=== PATIENT | female | born 1950 | race Caucasian/White ===

== ENCOUNTER 2020-10-13 07:06 | Inpatient (IN) | payer MEDICARE, SELFPAY ==
[2020-10-13] VITALS (9 sets, daily range): BP systolic 136–162; BP diastolic 73–89; PULSE 81–90; RESP 16–18; TEMP 36–36.4; O2SAT 97–99; BMI 32.6
--- NOTE | ~2020-10-13 | US_ITS ---
EXAMINATION: US renal BI EXAM DATE: 10/14/2020 09:31 INDICATION: Acute kidney insufficiency. TECHNIQUE: Multiple grayscale and Doppler images of the kidneys were obtained (by a technologist who performed the scan) and subsequently reviewed. There is no prior study for comparison. FINDINGS: Right kidney: There is normal contour and echogenicity. It measures 10.2 x 4.6 x 5.3 centimeters. T here are no focal renal lesions identified. There is no hydronephrosis. Left kidney: There is normal contour and echogenicity. It measures 10.3 x 4.8 x 5.2 centimeters. The re is a cyst measuring 2 cm. There is no hydronephrosis. Mildly thickened bladder wall probably from underdistention. IMPRESSION: No hydronephrosis. Reviewed, dictated and finalized at location A. IMPRESSION: No hydronephrosis.
--- NOTE | 2020-10-13 07:07 | ECG_ITS ---
Measurements Intervals [place] Rate: 82 P: 20 MT: 168 QRS: 3 QRSD: 118 T: 6 QT: 372 QTc: 437 Interpretive Statements SINUS RHYTHM CONSIDER INFERIOR INFARCT, AGE INDETERMINATE ABNORMAL ECG Electronically Signed On 10-13-2020 10:00:33 CDT by Janes Hannah D.O.
--- NOTE | 2020-10-13 08:59 | PM.IMHP ---
H&P: HPI History of Present Illness Date/Time: 10/13/20 08:59 Chief Complaint: acute renal failure Narrative: 70 yo female with pmh of hypertesion, diabetes and hyperlipdiemia, presents with on and off dizziness and lightheadedness since past efw weeks now. she has been working with her primary care in controlling her blood pressure and was stared on triamterene. she was hypotensive with it and down to 90s and hence stopped. switched to amlodipine but it caused her to have gi side effects and she went back to triamterene. she has noticed some low urine output since then and started feeing dizzy and lightheaded. she then cmae in for evluaaiton and was found to have creatinine of 4.8. along with lightheadedness, she was also having some nasuea and intermitten vomiting since past few weeks. no abdominal pain or diarrhea. no recent antibioics use. no fever, chills. no sob, chest pain. EKG sinus tachycardia wbc 11,7 hb 11.5 hct 36 pt 316 inr 1 didmer: negative glu 121 na 137 k 5.5 cl 103 hco3 17 ca 8.8 lft normal BUN 64 cr. 4.7 cpk 213 lipase: 852 BNP 207 mg 0.8 TSH 2.375 UA: wbc 10-25, rbc 5-10, postivie leukoctye repea lbs this am with improved K, mg up to 1.4, cr up to 4.88 CT abodmen and plevis; no acute fidngins opatient refused lloyd. Review of Systems Review of Systems: Narrative: - CONSTITUTIONAL: Denies weight loss, fever and chills. - HEENT: Denies changes in vision and hearing - RESPIRATORY: Denies SOB and cough. - CV: Denies palpitations and CP. - GI: Denies abdominal pain, reports nausea, vomiting and denies diarrhea. - : Denies dysuria and urinary frequency. - MSK: Denies myalgia and joint pain. - SKIN: Denies rash and pruritus. - NEUROLOGICAL: Denies headache and syncope. reprots lightheadeness - PSYCHIATRIC: Denies recent changes in mood. Denies anxiety and depression. All systems reviewed & are unremarkable except as noted in HPI and below Constitutional: Constitutional: Reports fatigue and Reports weakness Neurologic: Reports weakness Endocrine: Endocrine: Reports fatigue Meds Home Medications and Allergies Allergies Allergy/AdvReac Type Severity Reaction Status Date / Time No Known Allergies Allergy NONE Unverified 10/01/17 14:25 Exam Narrative: Exam Narrative: GENERAL: The patient is well developed, not in acute distress HEENT: Nonicteric sclerae, PERRLA, EOMI. Oropharynx clear. Moist mucous membranes. Conjunctivae appear well perfused. CHEST: Chest wall is nontender. HEART: Regular rate and rhythm without murmur, rubs, or gallops LUNGS: Clear to auscultation bilaterally. no respiratory distress ABDOMEN: Soft, positive bowel sounds, non-tender, no organomegaly. SKIN: No rash, no excessive bruising, petechiae, or purpura. NEUROLOGIC: Cranial nerves II-XII intact, alert and oriented x 3, no gross motor deficits EXTREMITIES: no edema, cyanosis or clubbing Assessment and Plan Assessment and plan (1) CYNTHIA (acute kidney injury): Code(s): N17.9 - Acute kidney failure, unspecified Status: Acute Assessment and Plan: likely related to recent chagne in meds with diurerics. urine studies iv hydration. renal consultation. refused lloyd strict I and O discussed with staff ct with no hydronephrosis hold bp mediations particulary diruetics (2) UTI (urinary tract infection): Code(s): N39.0 - Urinary tract infection, site not specified Status: Acute Assessment and Plan: ceftriaxone. ua and cutlure (3) Diabetes: Code(s): E11.9 - Type 2 diabetes mellitus without complications Status: Acute Assessment and Plan: ssi. on ozempic, pioglitazone and metfmorin at home. (4) HTN (hypertension): Code(s): I10 - Essential (primary) hypertension Status: Acute Assessment and Plan: hold bp medications. (5) Hyperlipidemia: Code(s): E78.5 - Hyperlipidemia, unspecified Status: Acute
[2020-10-13 09:45] LABS: Basophils Percent Auto 0.5 % (0.2-1.2); Eosinophils Absolute Auto 0.1 K/mm3 (0-0.3); Eosinophils Percent Auto 1.5 % (0-4.4); Hematocrit 32.8 % (37.0-47.0); Hemoglobin 10.6 g/dL (12.0-15.0); Immature Granulocyte Absolute 0.04 K/mm3 (0.00-0.031); Immature Granulocyte Percent A 0.5 % (0-0.5); Lymphocytes Absolute Auto 1.18 K/mm3 (0.9-3.2); Lymphocytes Percent Auto 13.5 % (18.3-44.2); Mean Corpuscular HGB Conc 32.3 g/dl (32-36); Mean Corpuscular Hemoglobin 31.4 pg (26-34); Mean Platelet Volume 10.1 fl (7.4-10.4); Monocytes Absolute Auto 0.7 K/mm3 (0.1-0.6); Monocytes Percent Auto 7.6 % (2.6-8.5); Neutrophils Absolute Auto 6.7 K/mm3 (1.3-6.7); Neutrophils Percent Auto 76.4 % (45.5-73.1); Platelet Count Result 263 k/mm3 (150-375); Red Blood Count 3.38 M/mm3 (4.2-5.4); Red Cell Distribution Width 13.7 % (11.5-14.5); White Blood Count 8.7 K/mm3 (4.5-10.0)
[2020-10-13 09:52] LABS: Add Urine Microscopic? YES; Appearance Urine Clear (Clear); Bilirubin Urine Negative (Negative); Blood Urine 1+ (Negative); Color Urine Straw (Yellow); Glucose Urine UA Negative (Negative); Ketones Urine Negative (Negative); Leukocyte Esterase Ur Trace LEU/UL (Negative); Mucus Urine Rare /lpf; Nitrate Urine Negative (Negative); Protein Urine Negative (Negative); RBC Urine 0-2 /hpf (0-2); Specific Grav Ur 1.006 (1.001-1.035); Squamous Epithelial Cell Urine Rare /hpf (Few); Urobilinogen Urine Negative mg/dL (<2.0)
[2020-10-13 10:00] LABS: Magnesium 1.3 mg/dL (1.6-2.3); Phosphorus 5.2 mg/dL (2.5-4.5)
[2020-10-13 10:01] LABS: Lactic Acid Reflex 1.4 mmol/L (0.7-2.1)
[2020-10-13 10:03] LABS: Alanine Aminotransferase 10 U/L (4-35); Alkaline Phosphatase 62 U/L (38-126); Anion Gap 10 mmol/L (8-16); Aspartate Amino Transferase 24 U/L (14-36); Bilirubin,Total 0.2 mg/dL (0.2-1.3); Blood Urea Nitrogen 58 mg/dL (7-17); Calcium 8.7 mg/dL (8.4-10.2); Carbon Dioxide 22 mmol/L (22-30); Chloride 106 mmol/L (98-107); Estimated CRCL calculation 11 ml/min; Estimated Glomerular Filt Rate 9; Glucose 141 mg/dL (65-105); Sodium 138 mmol/L (137-145)
[2020-10-13 10:04] LABS: Hemoglobin A1C 7.1 % (<5.7); Lipase 665 U/L (23-300)
[2020-10-13 10:06] LABS: Hemoglobin A1C 7.1 % (<5.7)
[2020-10-13] MEDS: HEPARIN SODIUM 5,000 UNITS/ML VIAL 5000 UNITS SUB-Q ×2 (10:44→20:46)
--- NOTE | 2020-10-13 10:47 | P.CONNP_ITS ---
Assessment and Plan Assessment and plan (1) CYNTHIA (acute kidney injury): Code(s): N17.9 - Acute kidney failure, unspecified Status: Acute Assessment and Plan: * etiology not clear * patient reports no history of CKD or renal insufficiency to her knowledge (although she certainly has risk factors) * related to recent medications adjustment(?) - diuretics, ARB, metformin on hold * Her fluctuating hemodynamics may playing a role - possible protracted ATN? * CT of abdomen at OSH was negative for any intra-abdominal pathology * follow-up on urine electrolytes and urine eosinophils; assess for proteinuria * agree with IVF trial for now * will check renal ultrasound for completeness * UA noted with blood, WBC, and leukocyte esterase - culture pending * if renal function fails to improve with conservative therapy, will proceed with serological evaluation (2) Hyperkalemia: Code(s): E87.5 - Hyperkalemia Status: Acute Assessment and Plan: * presumably secondary to #1 along with ARB use and acidosis by labs at OSH ER * follow trend (3) UTI (urinary tract infection): Code(s): N39.0 - Urinary tract infection, site not specified Status: Acute Assessment and Plan: * UA somewhat suggestive * follow-up on culture results * empirically on antibiotics (4) HTN (hypertension): Code(s): I10 - Essential (primary) hypertension Status: Acute Assessment and Plan: * reasonable control for now * off diuretics and ARB * agree with hydralazine for now * follow trend of hemodynamics (5) Diabetes: Code(s): E11.9 - Type 2 diabetes mellitus without complications Status: Acute Assessment and Plan: * follow accuchecks * glycemic control Will continue to follow. History of Present Illness Reason for Consult Consult date: 10/13/20 Reason for consult: acute renal failure Chief Complaint Chief complaint: Acute Renal Failure History of Present Illness Narrative: The patient is a 70 y/o female with a past medical history as outlined below who presented to [facility] as a transfer from [facility] in [place] for further evaluation of acute renal failure.Next Apparently, the patient has been having problems with on and off issues related to dizziness and lightheadedness for the last few weeks if not longer. She has been in contact with her primary care physician in effort to alleviate these symptoms and most of the interventions to date have been to adjust her blood pressure medications as it was felt that this was the possible cause. She was on triamterene/ hydrochlorothiazide and this apparently caused relative hypotension with her blood pressure dropping to the 90 systolic and hence this medication was stopped. She was subsequently then started on amlodipine but this gave her multiple gastrointestinal side effects so she stopped it and went back to triamterene/hydrochlorothiazide. More recently, she has noticed a decrease in urine output with once again symptoms of dizziness and lightheadedness that seemed to be progressively worsening to the point where she presented to [facility] in [place] for further evaluation. I am unclear what her initial vital signs were on presentation to the emergency room but routine labs did demonstrate a significant decline in her kidney function with a creatinine of 4.8 in association with mild hyperkalemia, mild metabolic acidosis, and a elevated lipase although I do not think she had any complaints of abdominal pain. She subsequent underwent
--- NOTE | 2020-10-13 10:47 | PM.CNNEP ---
Assessment and Plan Assessment and plan (1) CYNTHIA (acute kidney injury): Code(s): N17.9 - Acute kidney failure, unspecified Status: Acute Assessment and Plan: etiology not clear patient reports no history of CKD or renal insufficiency to her knowledge (although she certainly has risk factors) related to recent medications adjustment(?) - diuretics, ARB, metformin on hold Her fluctuating hemodynamics may playing a role - possible protracted ATN? CT of abdomen at OSH was negative for any intra-abdominal pathology follow-up on urine electrolytes and urine eosinophils; assess for proteinuria agree with IVF trial for now will check renal ultrasound for completeness UA noted with blood, WBC, and leukocyte esterase - culture pending if renal function fails to improve with conservative therapy, will proceed with serological evaluation (2) Hyperkalemia: Code(s): E87.5 - Hyperkalemia Status: Acute Assessment and Plan: presumably secondary to #1 along with ARB use and acidosis by labs at OSH ER follow trend (3) UTI (urinary tract infection): Code(s): N39.0 - Urinary tract infection, site not specified Status: Acute Assessment and Plan: UA somewhat suggestive follow-up on culture results empirically on antibiotics (4) HTN (hypertension): Code(s): I10 - Essential (primary) hypertension Status: Acute Assessment and Plan: reasonable control for now off diuretics and ARB agree with hydralazine for now follow trend of hemodynamics (5) Diabetes: Code(s): E11.9 - Type 2 diabetes mellitus without complications Status: Acute Assessment and Plan: follow accuchecks glycemic control Will continue to follow. History of Present Illness Reason for Consult Consult date: 10/13/20 Reason for consult: acute renal failure Chief Complaint Chief complaint: Acute Renal Failure History of Present Illness Narrative: The patient is a 70 y/o female with a past medical history as outlined below who presented to [facility] as a transfer from [facility] in [place] for further evaluation of acute renal failure.Next Apparently, the patient has been having problems with on and off issues related to dizziness and lightheadedness for the last few weeks if not longer. She has been in contact with her primary care physician in effort to alleviate these symptoms and most of the interventions to date have been to adjust her blood pressure medications as it was felt that this was the possible cause. She was on triamterene/ hydrochlorothiazide and this apparently caused relative hypotension with her blood pressure dropping to the 90 systolic and hence this medication was stopped. She was subsequently then started on amlodipine but this gave her multiple gastrointestinal side effects so she stopped it and went back to triamterene/hydrochlorothiazide. More recently, she has noticed a decrease in urine output with once again symptoms of dizziness and lightheadedness that seemed to be progressively worsening to the point where she presented to [facility] in [place] for further evaluation. I am unclear what her initial vital signs were on presentation to the emergency room but routine labs did demonstrate a significant decline in her kidney function with a creatinine of 4.8 in association with mild hyperkalemia, mild metabolic acidosis, and a elevated lipase although I do not think she had any complaints of abdominal pain. She subsequent underwent a CT scan of the abdomen and pelvis which did not demonstrate any type of intra-abdominal pathology and there was no evidence of hydronephrosis with regard to her kidneys. She also reported some mild nausea and intermittent vomiting in the past few weeks as well but no overt fevers, chills, chest pain, or shortness of breath. Given the severity of her renal dysfunction
[2020-10-13] MEDS: SODIUM CHLORIDE 0.9% IV 1,000 ML 125 ML IV CONT ×2 (10:49→18:37)
--- NOTE | 2020-10-13 11:37 | PC.NURSE ---
This patient, Regina Keller, was admitted to IMU Room 214-01. Patient/family oriented to hospital policies and general routines including ID bracelet, bed and alarms, visiting hours, pain management, procedures, bathroom and other care routines, personal items, smoking policy, room service/diet, and visiting hours. Information on how to activate the Rapid Response Team has been discussed. Patient/Family are encouraged to report perceived risks to care and to ask questions if they do not understand what they are told or what they should do.
[2020-10-13 12:27] LABS: Glucose Point of Care 107 mg/dl (65-105)
[2020-10-13 13:12] LABS: Eosinophil Urine None Seen % (None Seen)
[2020-10-13 16:52] LABS: Glucose Point of Care 148 mg/dl (65-105)
[2020-10-13 20:35] LABS: Glucose Point of Care 160 mg/dl (65-105)
[2020-10-13] MEDS: LOVASTATIN 20 MG TABLET PO (20:46)
[2020-10-13] MEDS: PANTOPRAZOLE 40 MG TABLET PO (21:00)
[2020-10-13 22:16] LABS: Creatinine Urine 61.8 mg/dL; Urea Random Urine 313 MG/DL
[2020-10-13 22:19] LABS: Sodium Urine Random 115 meq/L
[2020-10-14] VITALS (15 sets, daily range): BP systolic 129–152; BP diastolic 73–85; PULSE 72–89; RESP 18–20; TEMP 36.1–36.8; O2SAT 94–100
[2020-10-14] MEDS: SODIUM CHLORIDE 0.9% IV 1,000 ML 125 ML IV CONT ×3 (02:44→20:25)
[2020-10-14 08:45] LABS: Glucose Point of Care 136 mg/dl (65-105)
[2020-10-14] MEDS: PANTOPRAZOLE 40 MG TABLET PO (09:56)
[2020-10-14] MEDS: HEPARIN SODIUM 5,000 UNITS/ML VIAL 5000 UNITS SUB-Q ×2 (09:57→20:19)
[2020-10-14 10:21] LABS: Hematocrit 31.2 % (37.0-47.0); Mean Corpuscular HGB Conc 32.1 g/dl (32-36); Mean Corpuscular Hemoglobin 31.7 pg (26-34); Mean Platelet Volume 9.7 fl (7.4-10.4); Platelet Count Result 233 k/mm3 (150-375); Red Blood Count 3.15 M/mm3 (4.2-5.4); Red Cell Distribution Width 13.8 % (11.5-14.5)
[2020-10-14 10:32] LABS: Total Protein Urine Random 18 mg/dL
[2020-10-14 10:33] LABS: Alanine Aminotransferase 9 U/L (4-35); Albumin Level 3.6 g/dL (3.5-5.1); Alkaline Phosphatase 53 U/L (38-126); Anion Gap 10 mmol/L (8-16); Aspartate Amino Transferase 20 U/L (14-36); Bilirubin,Total 0.1 mg/dL (0.2-1.3); Blood Urea Nitrogen 42 mg/dL (7-17); Carbon Dioxide 20 mmol/L (22-30); Chloride 111 mmol/L (98-107); Estimated CRCL calculation 20 ml/min; Estimated Glomerular Filt Rate 17; Glucose 152 mg/dL (65-105); Potassium 4.6 mmol/L (3.4-5.0); Sodium 141 mmol/L (137-145)
[2020-10-14 11:10] LABS: Ur Ttl Prot Creatinine Ratio 0.29 mg/mg (0-0.20)
[2020-10-14 12:49] LABS: Glucose Point of Care 129 mg/dl (65-105)
--- NOTE | 2020-10-14 13:11 | PM.IMPN ---
Progress Note: A&P Assessment and Plan (1) CYNTHIA (acute kidney injury): Code(s): N17.9 - Acute kidney failure, unspecified Status: Acute Assessment and Plan: cr improving urine studies so far wnl; other pending, follow continue IVF nephrology following, recommendations appreciated plan for renal US strict I/O ct noted with no hydronephrosis continue holding antihypertensives and diuretics (2) UTI (urinary tract infection): Code(s): N39.0 - Urinary tract infection, site not specified Status: Acute Assessment and Plan: continue ceftriaxone follow uc (3) Diabetes: Code(s): E11.9 - Type 2 diabetes mellitus without complications Status: Acute Assessment and Plan: ssi/accuchecks holding orals monitor (4) HTN (hypertension): Code(s): I10 - Essential (primary) hypertension Status: Acute Assessment and Plan: hold bp medications for now monitor (5) Hyperlipidemia: Code(s): E78.5 - Hyperlipidemia, unspecified Status: Acute Assessment and Plan: resume home meds (6) Hyperkalemia: Code(s): E87.5 - Hyperkalemia Status: Acute Assessment and Plan: resolved monitor (7) Hypomagnesemia: Code(s): E83.42 - Hypomagnesemia Status: Acute Assessment and Plan: 0.8 at OSH-->1.3 will recheck replace prn monitor (8) Elevated lipase: Code(s): R74.8 - Abnormal levels of other serum enzymes Status: Acute Assessment and Plan: unclear etiology will recheck CT showed no pancreatitis Subjective Date/time seen: 10/14/20 13:11 pt seen and evaluated; no acute events overnight; labs, diagnostic reports and consult notes reviewed Review of Systems Review of Systems: All systems reviewed & are unremarkable except as noted in HPI and below Exam Const: General: no acute distress, alert and awake Orientation/consciousness: patient oriented x3 HENMT: Head: normocephalic and atraumatic Ears: hearing grossly normal bilaterally and external ears normal Face and sinus: face symmetric Mouth: Yes Normal oral and palatal mucosa present Eyes: Pupils: Equal, round and reactive pupils present EOM: EOMs intact bilaterally Neck: Neck: full ROM, trachea midline and no JVD Thyroid: thyroid normal Chest: Chest palpation & inspection: normal inspection of the chest Resp: Effort & Inspection: normal respiratory effort Auscultation: clear to auscultation bilaterally Cardio: Jugular venous distension: no JVD Rate: regular rate Rhythm: regular rhythm Heart sounds: S1 normal heart sound present and S2 normal heart sound present GI: Inspection: normal to inspection GI Palp: Yes Soft to palpation Percussion: Yes normal to percussion Auscultation: normal bowel sounds : General: Yes no CVA tenderness Back/Spine/Pelvis: Back: no CVA tenderness Skin: General skin exam: normal color Rashes: no rashes Neuro: General: patient oriented x3 and CN's II-XI intact bilaterally Cranial nerves: Yes Equal, round and reactive pupils present Speech: normal speech Psych: Appearance: grossly normal Affect: normal affect Judgement: Good judgement present (Psych) Objective Data Vital Signs Vital Signs: Vital Signs - 24 hr 10/13/20 14:00 10/13/20 16:00 10/13/20 18:00 Temperature 36.4 C Pulse Rate 87 90 86 Respiratory Rate 16 Blood Pressure 136/77 Pulse Oximetry 97 10/13/20 20:00 10/13/20 22:00 10/14/20 00:00 Temperature 36.0 C L 36.6 C Pulse Rate 85 83 72 Respiratory Rate 18 18 Blood Pressure 145/74 H 136/74 Pulse Oximetry 98 99 10/14/20 02:00 10/14/20 04:00 10/14/20 06:00 Temperature 36.1 C L Pulse Rate 78 85 73 Respiratory Rate 18 Blood Pressure 141/77 H Pulse Oximetry 100 10/14/20 07:37 10/14/20 08:00 10/14/20 10:00 Temperature 36.3 C L Pulse Rate 84 83 85 Respiratory Rate 18 Blood Pressure 137/80 Pulse Oximetry 99 10/14/20 11:36
--- NOTE | 2020-10-14 13:46 | P.PNNP_ITS ---
Progress Note: A&P Assessment and Plan (1) CYNTHIA (acute kidney injury): Code(s): N17.9 - Acute kidney failure, unspecified Status: Acute Assessment and Plan: * etiology not clear * patient reports no history of CKD or renal insufficiency to her knowledge (although she certainly has risk factors) * related to recent medications adjustment(?) - diuretics, ARB, metformin on hold * Her fluctuating hemodynamics may playing a role - possible protracted ATN? * CT of abdomen at OSH was negative for any intra-abdominal pathology * mild proteinuria noted and urine electrolytes are non-prerenal * agree with IVFs for now * UA noted with blood, WBC, and leukocyte esterase - culture pending * renal ultrasound negative * continue current therapy (2) Hyperkalemia: Code(s): E87.5 - Hyperkalemia Status: Acute Assessment and Plan: * presumably secondary to #1 along with ARB use and acidosis by labs at OSH ER * follow trend (3) UTI (urinary tract infection): Code(s): N39.0 - Urinary tract infection, site not specified Status: Acute Assessment and Plan: * UA somewhat suggestive * follow-up on culture results * empirically on antibiotics (4) HTN (hypertension): Code(s): I10 - Essential (primary) hypertension Status: Acute Assessment and Plan: * reasonable control for now * off diuretics and ARB * agree with hydralazine for now * follow trend of hemodynamics (5) Diabetes: Code(s): E11.9 - Type 2 diabetes mellitus without complications Status: Acute Assessment and Plan: * follow accuchecks * glycemic control Will continue to follow. Subjective Date/time seen: 10/14/20 13:46 Appears to be doing reasonably well; good urine output with IVF resuscitation and renal function has improved as well; no other issues/events overnight or earlier this AM; no apparent distress voiced at this time. Exam Narrative: Exam Narrative: General: WD/WN female in NAD Heart: normal S1 and S2; no rub Lungs: clear to auscultation Abdomen: soft, nontender, nondistended, positive bowel sounds Extremities: no cyanosis or clubbing; no edema Skin: warm and dry Objective Data Vital Signs Vital Signs: Vital Signs Temp Pulse Resp BP Pulse Ox 10/14/20 12:00 76 18 99 10/14/20 11:36 36.5 C 81 18 129/73 99 06/06/21 10:00 85 10/14/20 08:00 83 10/14/20 07:37 36.3 C L 84 18 137/80 99 10/14/20 06:00 73 10/14/20 04:00 36.1 C L 85 18 141/77 H 100 10/14/20 02:00 78 10/14/20 00:00 36.6 C 72 18 136/74 99 10/13/20 22:00 83 10/13/20 20:00 36.0 C L 85 18 145/74 H 98 10/13/20 18:00 86 10/13/20 16:00 36.4 C 90 16 136/77 97 Intake/Output Intake/Output: Intake & Output 10/11/20 10/12/20 10/13/20 10/14/20 23:59 23:59 23:59 23:59 Intake Total 2290 3030 Output Total 1400 2000 Balance 890 1030 Meds/Results Medications: Active Medications Generic Name Dose Route Start Last Admin Trade Name Freq PRN Reason Stop Dose Admin Dextrose 12.5 gm 10/13/20 08:58 Dextrose 50% 25 Gm/50 Ml Syringe IV PUSH PRN PRN Hy
--- NOTE | 2020-10-14 13:46 | PM.PNNEP ---
Progress Note: A&P Assessment and Plan (1) CYNTHIA (acute kidney injury): Code(s): N17.9 - Acute kidney failure, unspecified Status: Acute Assessment and Plan: etiology not clear patient reports no history of CKD or renal insufficiency to her knowledge (although she certainly has risk factors) related to recent medications adjustment(?) - diuretics, ARB, metformin on hold Her fluctuating hemodynamics may playing a role - possible protracted ATN? CT of abdomen at OSH was negative for any intra-abdominal pathology mild proteinuria noted and urine electrolytes are non-prerenal agree with IVFs for now UA noted with blood, WBC, and leukocyte esterase - culture pending renal ultrasound negative continue current therapy (2) Hyperkalemia: Code(s): E87.5 - Hyperkalemia Status: Acute Assessment and Plan: presumably secondary to #1 along with ARB use and acidosis by labs at OSH ER follow trend (3) UTI (urinary tract infection): Code(s): N39.0 - Urinary tract infection, site not specified Status: Acute Assessment and Plan: UA somewhat suggestive follow-up on culture results empirically on antibiotics (4) HTN (hypertension): Code(s): I10 - Essential (primary) hypertension Status: Acute Assessment and Plan: reasonable control for now off diuretics and ARB agree with hydralazine for now follow trend of hemodynamics (5) Diabetes: Code(s): E11.9 - Type 2 diabetes mellitus without complications Status: Acute Assessment and Plan: follow accuchecks glycemic control Will continue to follow. Subjective Date/time seen: 10/14/20 13:46 Appears to be doing reasonably well; good urine output with IVF resuscitation and renal function has improved as well; no other issues/events overnight or earlier this AM; no apparent distress voiced at this time. Exam Narrative: Exam Narrative: General: WD/WN female in NAD Heart: normal S1 and S2; no rub Lungs: clear to auscultation Abdomen: soft, nontender, nondistended, positive bowel sounds Extremities: no cyanosis or clubbing; no edema Skin: warm and dry Objective Data Vital Signs Vital Signs: Vital Signs Temp Pulse Resp BP Pulse Ox 10/14/20 12:00 76 18 99 10/14/20 11:36 36.5 C 81 18 129/73 99 10/14/20 10:00 85 10/14/20 08:00 83 10/14/20 07:37 36.3 C L 84 18 137/80 99 10/14/20 06:00 73 10/14/20 04:00 36.1 C L 85 18 141/77 H 100 10/14/20 02:00 78 10/14/20 00:00 36.6 C 72 18 136/74 99 10/13/20 22:00 83 10/13/20 20:00 36.0 C L 85 18 145/74 H 98 10/13/20 18:00 86 10/13/20 16:00 36.4 C 90 16 136/77 97 Intake/Output Intake/Output: Intake & Output 10/11/20 10/12/20 10/13/20 10/14/20 23:59 23:59 23:59 23:59 Intake Total 2290 3030 Output Total 1400 2000 Balance 890 1030 Meds/Results Medications: Active Medications Generic Name Dose Route Start Last Admin Trade Name Freq PRN Reason Stop Dose Admin Dextrose 12.5 gm 10/13/20 08:58 Dextrose 50% 25 Gm/50 Ml Syringe IV PUSH PRN PRN Hypoglycemia Protocol Glucagon 1 mg 10/13/20 08:58 Glucagon For Inj 1 Mg Vial IM PRN PRN Hypoglycemia Protocol Glucose 15 gm 10/13/20 08:58 Glucose Oral Gel 15 Gm Of Glucse In 37.5 Gm Tube PO PRN PRN Hypoglycemia Protocol Heparin Sodium (Porcine) 5,000 units 10/13/20 09:00 10/14/20 09:57 Heparin Sodium 5,000 Units/Ml Vial SUB-Q 5,000 units Q12HR MILA Administration Hydralazine HCl 10 mg 10/13/20 14:22 Hydralazine Hcl 20 Mg/Ml Vial IV PUSH Q8H PRN Blood Pressure - High Sodium Chloride 1,000 mls @ 125 mls/hr 10/13/20 07:10 10/14/20 09:58 Normal Saline Iv IV CONT 125 mls/hr .Q8H MILA Administration Ceftriaxone Sodium/Dextrose 1 gm in 50 mls @ 100 mls/hr 10/13/20 09:00 10/14/20
[2020-10-14 15:01] LABS: Lipase 720 U/L (23-300); Magnesium 0.9 mg/dL (1.6-2.3)
[2020-10-14] MEDS: MAGNESIUM SULF 4 GM/WATER100ML 4 GM/100 ML BAG IVPB (16:24)
[2020-10-14 18:01] LABS: Glucose Point of Care 174 mg/dl (65-105)
[2020-10-14] MEDS: LOVASTATIN 20 MG TABLET PO (20:19)
[2020-10-14 20:53] LABS: Glucose Point of Care 162 mg/dl (65-105)
[2020-10-15] VITALS (12 sets, daily range): BP systolic 134–152; BP diastolic 66–89; PULSE 66–90; RESP 16–18; TEMP 36.2–36.9; O2SAT 95–98; BMI 32.8
[2020-10-15] MEDS: SODIUM CHLORIDE 0.9% IV 1,000 ML 125 ML IV CONT ×2 (06:13→11:48)
[2020-10-15 07:01] LABS: Glucose Point of Care 141 mg/dl (65-105)
[2020-10-15] MEDS: HEPARIN SODIUM 5,000 UNITS/ML VIAL 5000 UNITS SUB-Q ×2 (08:33→20:35)
[2020-10-15] MEDS: PANTOPRAZOLE 40 MG TABLET PO (08:33)
[2020-10-15 09:07] LABS: Hematocrit 29.6 % (37.0-47.0); Hemoglobin 9.6 g/dL (12.0-15.0)
[2020-10-15 09:44] LABS: Anion Gap 9 mmol/L (8-16); Blood Urea Nitrogen 30 mg/dL (7-17); Calcium 7.7 mg/dL (8.4-10.2); Carbon Dioxide 22 mmol/L (22-30); Chloride 110 mmol/L (98-107); Estimated CRCL calculation 31 ml/min; Estimated Glomerular Filt Rate 30; Glucose 144 mg/dL (65-105); Lipase 635 U/L (23-300); Potassium 4.4 mmol/L (3.4-5.0); Sodium 141 mmol/L (137-145)
[2020-10-15 10:50] LABS: Magnesium 1.4 mg/dL (1.6-2.3)
[2020-10-15 12:06] LABS: Glucose Point of Care 117 mg/dl (65-105)
--- NOTE | 2020-10-15 14:06 | PM.IMPN ---
Progress Note: A&P Assessment and Plan (1) CYNTHIA (acute kidney injury): Code(s): N17.9 - Acute kidney failure, unspecified Status: Acute Assessment and Plan: No history of chronic kidney disease. No prior labs available to establish baseline. Creatinine was 4.9 at time of presentation and has improved down to 1.7 today. She has recently had episodes of hypotension followed by subsequent hypertension, which may be affecting renal function. Renal ultrasound negative. Appreciate nephrology consultation Continue IV fluids ARB and diuretics are on hold Urine studies pending (2) UTI (urinary tract infection): Code(s): N39.0 - Urinary tract infection, site not specified Status: Acute Assessment and Plan: Ruled out. Urine culture negative. IV ceftriaxone discontinued. (3) Diabetes: Code(s): E11.9 - Type 2 diabetes mellitus without complications Status: Acute Assessment and Plan: A1c is 7.1. Blood sugars reviewed and have been fairly well controlled. Continue Accu-Cheks, sliding scale insulin, hypoglycemic protocol Hold oral hypoglycemic agents Monitor glucose trends (4) HTN (hypertension): Code(s): I10 - Essential (primary) hypertension Status: Acute Assessment and Plan: Blood pressure reviewed and has been reasonably well controlled. Last BP 151/89. Antihypertensive agents are on hold as described above given CYNTHIA Monitor BP trends (5) Hyperkalemia: Code(s): E87.5 - Hyperkalemia Status: Acute Assessment and Plan: Resolved. Likely secondary to acute kidney injury. Potassium 4.4 today. (6) Hypomagnesemia: Code(s): E83.42 - Hypomagnesemia Status: Acute Assessment and Plan: Magnesium was 0.8 at outside hospital. Improved to 1.4 today. Administer 2 g IV magnesium sulfate Will likely need to be started on oral magnesium supplement Monitor magnesium levels daily (7) Elevated lipase: Code(s): R74.8 - Abnormal levels of other serum enzymes Status: Acute Assessment and Plan: CT scan from outside hospital reportedly negative. She is asymptomatic and tolerating diet. Lipase has improved; 635 today. LFTs within normal limits. Trend lipase Consider further imaging/workup based on results Additional Plan Patient is hemodynamically stable. Will downgrade from IMU to medical-surgical floor. Subjective Date/time seen: 10/15/20 14:06 Interval history: Date of service: 10/15/2020 Regina Keller is a 70-year-old female with history of diabetes, hypertension, hyperlipidemia, gout, and GERD who is seen in follow-up for acute kidney injury. She is feeling well. She has no complaints at this time. She denies any urinary symptoms, although notes she is urinating more frequently given IV fluids. Denies nausea, vomiting, fever, or chills. No flank pain, abdominal pain, or suprapubic pain. Denies chest pain or palpitations. No dizziness or lightheadedness. She has been eating well. She has been able to ambulate back and forth to the restroom independently without any issues. Review of Systems Review of Systems: All systems reviewed & are unremarkable except as noted in HPI and below Exam Narrative: Exam Narrative: Ms. Keller is a well-nourished, well-appearing 70-year-old female who is lying supine in bed. She appears comfortable and is in NARD. Observed her get out of bed and ambulate with no issues. Neuro: awake, alert and oriented x4, speech clear, no focal neuro deficits noted HEENMT: normocephalic, atraumatic, EOMI, sclerae anicteric, moist oral mucosa, tongue midline, nares patent Neck: supple, no lymphadenopathy Respiratory: clear to auscultation bilaterally, nonlabored breathing Cardio: regular rate, regular rhythm with S1-S2 Abdomen: nondistended, normoactive bowel sounds, soft, nontender to palpation, no rigidity or guarding Extre
[2020-10-15] MEDS: MAGNESIUM SULF 2 GM/WATER 50ML 2 GM/50 ML BAG IVPB (15:07)
--- NOTE | 2020-10-15 16:37 | P.PNNP_ITS ---
Progress Note: A&P Assessment and Plan (1) CYNTHIA (acute kidney injury): Code(s): N17.9 - Acute kidney failure, unspecified Status: Acute Assessment and Plan: * etiology not clear * patient reports no history of CKD or renal insufficiency to her knowledge (although she certainly has risk factors) * related to recent medications adjustment(?) - diuretics, ARB, metformin on hold * Her fluctuating hemodynamics may playing a role - possible protracted ATN? * CT of abdomen at OSH was negative for any intra-abdominal pathology * mild proteinuria noted and urine electrolytes are non-prerenal * on IVFs with improvement in renal function * renal ultrasound negative * continue current therapy (2) Hyperkalemia: Code(s): E87.5 - Hyperkalemia Status: Acute Assessment and Plan: * presumably secondary to #1 along with ARB use and acidosis by labs at OSH ER * follow trend (3) UTI (urinary tract infection): Code(s): N39.0 - Urinary tract infection, site not specified Status: Acute Assessment and Plan: * UA somewhat suggestive * however, urine culture negative (4) HTN (hypertension): Code(s): I10 - Essential (primary) hypertension Status: Acute Assessment and Plan: * reasonable control for now * off diuretics and ARB * agree with hydralazine for now * follow trend of hemodynamics (5) Diabetes: Code(s): E11.9 - Type 2 diabetes mellitus without complications Status: Acute Assessment and Plan: * follow accuchecks * glycemic control I would not be opposed to discharge tomorrow if her creatinine is better - I would hold diuretics and ARB on discharge for now and repeat labs in a week to ensure kidney function continues to improve. Will continue to follow. Subjective Date/time seen: 10/15/20 16:37 Appears to be dong reasonably well; continues to make good urine output with noted improvement in renal function; eating and drinking well; ambulating without any difficulty; no apparent distress voiced at the time of my visit; no events overnight or earlier this AM. Exam Narrative: Exam Narrative: General: WD/WN female in NAD Heart: normal S1 and S2; no rub Lungs: clear to auscultation Abdomen: soft, nontender, nondistended, positive bowel sounds Extremities: no cyanosis or clubbing; no edema Skin: warm and intact Objective Data Vital Signs Vital Signs: Vital Signs Temp Pulse Resp BP Pulse Ox 10/15/20 14:00 77 10/15/20 12:11 36.9 C 79 16 152/78 H 98 10/15/20 12:00 90 10/15/20 10:00 85 10/15/20 08:00 36.4 C 80 16 151/89 H 97 10/15/20 06:00 72 10/15/20 04:00 36.4 C 71 18 140/70 97 10/15/20 02:00 74 10/15/20 00:00 36.2 C L 73 18 135/78 96 10/14/20 23:42 36.2 C L 77 18 135/78 96 10/14/20 22:00 78 10/14/20 20:00 36.8 C 89 20 152/85 H 94 Intake/Output Intake/Output: Intake & Output 10/12/20 10/13/20 10/14/20 10/15/20 23:59 23:59 23:59 23:59 Intake Total 2290 4820 2770 Output Total 1400 2350 4100 Balance 890 2470 -1330 Meds/Results Medications: Active Medications Generic Name Dose Route Start Last Admin Trade Name Freq PRN
--- NOTE | 2020-10-15 16:37 | PM.PNNEP ---
Progress Note: A&P Assessment and Plan (1) CYNTHIA (acute kidney injury): Code(s): N17.9 - Acute kidney failure, unspecified Status: Acute Assessment and Plan: etiology not clear patient reports no history of CKD or renal insufficiency to her knowledge (although she certainly has risk factors) related to recent medications adjustment(?) - diuretics, ARB, metformin on hold Her fluctuating hemodynamics may playing a role - possible protracted ATN? CT of abdomen at OSH was negative for any intra-abdominal pathology mild proteinuria noted and urine electrolytes are non-prerenal on IVFs with improvement in renal function renal ultrasound negative continue current therapy (2) Hyperkalemia: Code(s): E87.5 - Hyperkalemia Status: Acute Assessment and Plan: presumably secondary to #1 along with ARB use and acidosis by labs at OSH ER follow trend (3) UTI (urinary tract infection): Code(s): N39.0 - Urinary tract infection, site not specified Status: Acute Assessment and Plan: UA somewhat suggestive however, urine culture negative (4) HTN (hypertension): Code(s): I10 - Essential (primary) hypertension Status: Acute Assessment and Plan: reasonable control for now off diuretics and ARB agree with hydralazine for now follow trend of hemodynamics (5) Diabetes: Code(s): E11.9 - Type 2 diabetes mellitus without complications Status: Acute Assessment and Plan: follow accuchecks glycemic control I would not be opposed to discharge tomorrow if her creatinine is better - I would hold diuretics and ARB on discharge for now and repeat labs in a week to ensure kidney function continues to improve. Will continue to follow. Subjective Date/time seen: 10/15/20 16:37 Appears to be dong reasonably well; continues to make good urine output with noted improvement in renal function; eating and drinking well; ambulating without any difficulty; no apparent distress voiced at the time of my visit; no events overnight or earlier this AM. Exam Narrative: Exam Narrative: General: WD/WN female in NAD Heart: normal S1 and S2; no rub Lungs: clear to auscultation Abdomen: soft, nontender, nondistended, positive bowel sounds Extremities: no cyanosis or clubbing; no edema Skin: warm and intact Objective Data Vital Signs Vital Signs: Vital Signs Temp Pulse Resp BP Pulse Ox 10/15/20 14:00 77 10/15/20 12:11 36.9 C 79 16 152/78 H 98 10/15/20 12:00 90 10/15/20 10:00 85 10/15/20 08:00 36.4 C 80 16 151/89 H 97 10/15/20 06:00 72 10/15/20 04:00 36.4 C 71 18 140/70 97 10/15/20 02:00 74 10/15/20 00:00 36.2 C L 73 18 135/78 96 10/14/20 23:42 36.2 C L 77 18 135/78 96 10/14/20 22:00 78 10/14/20 20:00 36.8 C 89 20 152/85 H 94 Intake/Output Intake/Output: Intake & Output 10/12/20 10/13/20 10/14/20 10/15/20 23:59 23:59 23:59 23:59 Intake Total 2290 4820 2770 Output Total 1400 2350 4100 Balance 890 2470 -1330 Meds/Results Medications: Active Medications Generic Name Dose Route Start Last Admin Trade Name Freq PRN Reason Stop Dose Admin Dextrose 12.5 gm 10/13/20 08:58 Dextrose 50% 25 Gm/50 Ml Syringe IV PUSH PRN PRN Hypoglycemia Protocol Glucagon 1 mg 10/13/20 08:58 Glucagon For Inj 1 Mg Vial IM PRN PRN Hypoglycemia Protocol Glucose 15 gm 10/13/20 08:58 Glucose Oral Gel 15 Gm Of Glucse In 37.5 Gm Tube PO PRN PRN Hypoglycemia Protocol Heparin Sodium (Porcine) 5,000 units 10/13/20 09:00 10/15/20 08:33 Heparin Sodium 5,000 Units/Ml Vial SUB-Q 5,000 units Q12HR MILA Administration Hydralazine HCl 10 mg 10/13/20 14:22 Hydralazine Hcl 20 Mg/Ml Vial IV PUSH Q8H PRN Blood Pressure - High Sodium Chloride 1,000 mls @ 75 mls/hr 10/13/20 07:10 06
[2020-10-15 16:57] LABS: Glucose Point of Care 114 mg/dl (65-105)
--- NOTE | 2020-10-15 18:20 | PC.NURSE ---
This patient, Regina Keller, was received from IMU on 10/15/20 at 1820. Patient/family oriented to unit policies and routines. Report received from Kiesha BULLOCK
--- NOTE | 2020-10-15 18:24 | PC.NURSE ---
This patient, Regina Keller, was transferred to Room 303 on 10/15/20 at 1818. Personal belongings sent with patient. Report given to Deidre. Appropriate documentation sent with patient.
[2020-10-15] MEDS: LOVASTATIN 20 MG TABLET PO (20:35)
[2020-10-15] MEDS: SODIUM CHLORIDE 0.9% IV 1,000 ML 75 ML IV CONT (21:01)
[2020-10-15 21:05] LABS: Glucose Point of Care 127 mg/dl (65-105)
[2020-10-16 05:40] VITALS: BP 148/74; PULSE 67; RESP 18; TEMP 36.7; O2SAT 97
[2020-10-16 06:38] LABS: Alanine Aminotransferase 7 U/L (4-35); Albumin Level 3.2 g/dL (3.5-5.1); Alkaline Phosphatase 52 U/L (38-126); Anion Gap 7 mmol/L (8-16); Aspartate Amino Transferase 19 U/L (14-36); Bilirubin,Total < 0.1 mg/dL (0.2-1.3); Blood Urea Nitrogen 27 mg/dL (7-17); Calcium 7.6 mg/dL (8.4-10.2); Carbon Dioxide 23 mmol/L (22-30); Chloride 111 mmol/L (98-107); Estimated CRCL calculation 35 ml/min; Estimated Glomerular Filt Rate 34; Glucose 121 mg/dL (65-105); Lipase 613 U/L (23-300); Magnesium 1.3 mg/dL (1.6-2.3); Potassium 4.5 mmol/L (3.4-5.0); Sodium 141 mmol/L (137-145)
[2020-10-16 07:42] LABS: Glucose Point of Care 123 mg/dl (65-105)
[2020-10-16] MEDS: PANTOPRAZOLE 40 MG TABLET PO (08:35)
[2020-10-16] MEDS: HEPARIN SODIUM 5,000 UNITS/ML VIAL 5000 UNITS SUB-Q (08:35)
[2020-10-16] MEDS: MAGNESIUM SULFATE 3GM/D5W100ML 3 GM/100 ML BAG IVPB (09:58)
--- NOTE | 2020-10-16 10:41 | P.PNNP_ITS ---
Progress Note: A&P Assessment and Plan (1) CYNTHIA (acute kidney injury): Code(s): N17.9 - Acute kidney failure, unspecified Status: Acute Assessment and Plan: * etiology not clear * patient reports no history of CKD or renal insufficiency to her knowledge (although she certainly has risk factors) * related to recent medications adjustment(?) - diuretics, ARB, metformin on hold * her fluctuating hemodynamics may be playing a role * CT of abdomen at OSH was negative for any intra-abdominal pathology * mild proteinuria noted and urine electrolytes are non-prerenal * on IVFs with improvement in renal function * renal ultrasound negative * continue current therapy (2) Hyperkalemia: Code(s): E87.5 - Hyperkalemia Status: Acute Assessment and Plan: * presumably secondary to #1 along with ARB use and acidosis by labs at OSH ER * follow trend (3) UTI (urinary tract infection): Code(s): N39.0 - Urinary tract infection, site not specified Status: Acute Assessment and Plan: * UA somewhat suggestive * however, urine culture negative (4) HTN (hypertension): Code(s): I10 - Essential (primary) hypertension Status: Acute Assessment and Plan: * reasonable control for now * off diuretics and ARB * agree with hydralazine for now * follow trend of hemodynamics (5) Diabetes: Code(s): E11.9 - Type 2 diabetes mellitus without complications Status: Acute Assessment and Plan: * follow accuchecks * glycemic control I would not be opposed to discharge today since her creatinine is better - I would hold diuretics and ARB on discharge for now and repeat labs in a week to ensure kidney function continues to improve; we could use oral hydralazine if she needs something for BP control as a temporary measure. Will continue to follow. Subjective Date/time seen: 10/16/20 10:41 Continues to do well with no issues or problems overnight or earlier this AM; otherwise feels pretty good. Asking about discharge at the time of my visit. Exam Narrative: Exam Narrative: General: WD/WN female in NAD Heart: normal S1 and S2; no rub Lungs: clear to auscultation Abdomen: soft, nontender, nondistended, positive bowel sounds Extremities: no cyanosis or clubbing; no edema Skin: no rash or nodules Objective Data Vital Signs Vital Signs: Vital Signs Temp Pulse Resp BP Pulse Ox 10/16/20 05:40 36.7 C 67 18 148/74 H 97 10/15/20 21:37 36.8 C 82 18 149/79 H 95 10/15/20 18:15 36.8 C 85 16 148/88 H 96 10/15/20 17:00 36.6 C 83 16 134/66 96 10/15/20 14:00 77 10/15/20 12:11 36.9 C 79 16 152/78 H 98 10/15/20 12:00 90 Intake/Output Intake/Output: Intake & Output 10/13/20 10/14/20 10/15/20 10/16/20 23:59 23:59 23:59 23:59 Intake Total 2290 4820 3770 1420 Output Total 1400 2350 4100 Balance 890 2470 -330 1420 Meds/Results Medications: Active Medications Generic Name Dose Route Start Last Admin Trade Name Freq PRN Reason Stop Dose Admin Dextrose 12.5 gm 10/13/20 08:58 Dextrose 50% 25 Gm/50 Ml Syringe IV PUSH PRN PRN Hypoglycemia Protocol Glucagon 1 mg
--- NOTE | 2020-10-16 10:41 | PM.PNNEP ---
Progress Note: A&P Assessment and Plan (1) CYNTHIA (acute kidney injury): Code(s): N17.9 - Acute kidney failure, unspecified Status: Acute Assessment and Plan: etiology not clear patient reports no history of CKD or renal insufficiency to her knowledge (although she certainly has risk factors) related to recent medications adjustment(?) - diuretics, ARB, metformin on hold her fluctuating hemodynamics may be playing a role CT of abdomen at OSH was negative for any intra-abdominal pathology mild proteinuria noted and urine electrolytes are non-prerenal on IVFs with improvement in renal function renal ultrasound negative continue current therapy (2) Hyperkalemia: Code(s): E87.5 - Hyperkalemia Status: Acute Assessment and Plan: presumably secondary to #1 along with ARB use and acidosis by labs at OSH ER follow trend (3) UTI (urinary tract infection): Code(s): N39.0 - Urinary tract infection, site not specified Status: Acute Assessment and Plan: UA somewhat suggestive however, urine culture negative (4) HTN (hypertension): Code(s): I10 - Essential (primary) hypertension Status: Acute Assessment and Plan: reasonable control for now off diuretics and ARB agree with hydralazine for now follow trend of hemodynamics (5) Diabetes: Code(s): E11.9 - Type 2 diabetes mellitus without complications Status: Acute Assessment and Plan: follow accuchecks glycemic control I would not be opposed to discharge today since her creatinine is better - I would hold diuretics and ARB on discharge for now and repeat labs in a week to ensure kidney function continues to improve; we could use oral hydralazine if she needs something for BP control as a temporary measure. Will continue to follow. Subjective Date/time seen: 10/16/20 10:41 Continues to do well with no issues or problems overnight or earlier this AM; otherwise feels pretty good. Asking about discharge at the time of my visit. Exam Narrative: Exam Narrative: General: WD/WN female in NAD Heart: normal S1 and S2; no rub Lungs: clear to auscultation Abdomen: soft, nontender, nondistended, positive bowel sounds Extremities: no cyanosis or clubbing; no edema Skin: no rash or nodules Objective Data Vital Signs Vital Signs: Vital Signs Temp Pulse Resp BP Pulse Ox 10/16/20 05:40 36.7 C 67 18 148/74 H 97 10/15/20 21:37 36.8 C 82 18 149/79 H 95 10/15/20 18:15 36.8 C 85 16 148/88 H 96 10/15/20 17:00 36.6 C 83 16 134/66 96 10/15/20 14:00 77 10/15/20 12:11 36.9 C 79 16 152/78 H 98 10/15/20 12:00 90 Intake/Output Intake/Output: Intake & Output 10/13/20 10/14/20 10/15/20 10/16/20 23:59 23:59 23:59 23:59 Intake Total 2290 4820 3770 1420 Output Total 1400 2350 4100 Balance 890 2470 -330 1420 Meds/Results Medications: Active Medications Generic Name Dose Route Start Last Admin Trade Name Freq PRN Reason Stop Dose Admin Dextrose 12.5 gm 10/13/20 08:58 Dextrose 50% 25 Gm/50 Ml Syringe IV PUSH PRN PRN Hypoglycemia Protocol Glucagon 1 mg 10/13/20 08:58 Glucagon For Inj 1 Mg Vial IM PRN PRN Hypoglycemia Protocol Glucose 15 gm 10/13/20 08:58 Glucose Oral Gel 15 Gm Of Glucse In 37.5 Gm Tube PO PRN PRN Hypoglycemia Protocol Heparin Sodium (Porcine) 5,000 units 10/13/20 09:00 10/16/20 08:35 Heparin Sodium 5,000 Units/Ml Vial SUB-Q 5,000 units Q12HR MILA Administration Hydralazine HCl 10 mg 10/13/20 14:22 Hydralazine Hcl 20 Mg/Ml Vial IV PUSH Q8H PRN Blood Pressure - High Sodium Chloride 1,000 mls @ 75 mls/hr 10/13/20 07:10 10/15/20 21:01 Normal Saline Iv IV CONT 75 mls/hr .[id number] MILA Administration Dextrose 1,000 mls @ 100 mls/hr 10/13/20 08:58 Dextrose 5% 1,000 Ml IVPB PRN P
[2020-10-16 11:51] LABS: Glucose Point of Care 129 mg/dl (65-105)
[2020-10-16] MEDS: MAGNESIUM OXIDE 400 MG TABLET PO (13:31)
[2020-10-16 14:00] VITALS: BP 151/76; PULSE 82; RESP 18; TEMP 37.1; O2SAT 98
--- NOTE | 2020-10-16 15:16 | PM.DS ---
DS: Admitting Diagnosis Admitting Diagnosis Admitting Diagnosis: Acute kidney injury DS: Discharge Diagnosis Discharge Diagnosis (1) CYNTHIA (acute kidney injury): Code(s): N17.9 - Acute kidney failure, unspecified Status: Acute Assessment and Plan: No history of chronic kidney disease. No prior labs available to establish baseline. Creatinine was 4.9 at time of presentation. She has recently had episodes of hypotension followed by subsequent hypertension, and hemodynamic changes may have affected her renal function. Renal ultrasound negative. She was seen in consultation by nephrology. Her losartan and triamterene-hydrochlorothiazide were held. She was rehydrated with IV fluids. Creatinine slowly improved down to 1.5. Repeat BMP in 1 week for further monitoring with PCP. ARB and diuretic discontinued. (2) UTI (urinary tract infection): Code(s): N39.0 - Urinary tract infection, site not specified Status: Acute Assessment and Plan: Ruled out. She was asymptomatic. Urine culture negative. IV ceftriaxone discontinued. (3) Elevated lipase: Code(s): R74.8 - Abnormal levels of other serum enzymes Status: Acute Assessment and Plan: CT scan from outside hospital negative. No concerns for acute pancreatitis. She was asymptomatic and tolerating diet. Lipase was monitored and did demonstrate improvement, though remained persistently elevated around 600. LFTs within normal limits. Suspect this is related to her Ozempic, which was discontinued. (4) Hyperkalemia: Code(s): E87.5 - Hyperkalemia Status: Acute Assessment and Plan: Resolved. Likely secondary to acute kidney injury. (5) Hypomagnesemia: Code(s): E83.42 - Hypomagnesemia Status: Acute Assessment and Plan: Magnesium was 0.8 at outside hospital. Magnesium was monitored and replaced with IV magnesium sulfate. She was started on oral magnesium supplement which she should take 2 times per day and repeat magnesium levels in 1 week for further monitoring. (6) HTN (hypertension): Code(s): I10 - Essential (primary) hypertension Status: Acute Assessment and Plan: Blood pressure reviewed and was reasonably well controlled. ARB and diuretics discontinued as described above. Transitioned to hydralazine for BP control per nephrology recommendations. Encouraged BP monitoring at home and follow-up with PCP for medication adjustment as needed. (7) Diabetes: Code(s): E11.9 - Type 2 diabetes mellitus without complications Status: Acute Assessment and Plan: A1c is 7.1. Blood sugars reviewed and were fairly well controlled with sliding scale insulin during stay. Continue metformin and pioglitazone. Ozempic discontinued given elevated lipase as described below. Encourage careful monitoring of blood sugars at home given these changes and follow-up with PCP for review of blood sugar trends. DS: Summary Hospital Course Reason for hospitalization: Acute kidney injury Hospital Course: Date of admission: 10/13/2020 Date of discharge: 10/16/2020 Regina Keller is a 70-year-old female with history of diabetes, hypertension, hyperlipidemia, gout, and GERD from [facility] on 10/13/2020 due to acute kidney injury with a creatinine of 4.8. She was complained of dizziness and lightheadedness that has been ongoing for a couple of weeks. She noted that she had been seeing her PCP to adjust her blood pressure regimen and was having issues with hypotension then subsequent hypertension. Upon presentation to outside facility, she was noted to have mild leukocytosis, potassium was elevated at 5.5, creatinine was 4.7, BUN 64, lipase 852, magnesium 0.8, urinalysis was slightly abnormal, additional laboratory work unremarkable, and CT abdomen/pelvis with no acute findings. She was admitted to the hospitalist service for further evaluation and manage
[2020-10-19 06:05] LABS: Creatinine, Random Urine 59 mg/dL (20-275); Total Protein/Creatinine Ratio 356 mg/g creat (21-161)
== END 2020-10-16 16:05 | disposition home or self-care (01) | DRG 684 ==
LOC: ANHIMU 10-15 08:09 → ANH3MEDSUR 10-16 13:02 → ANHIMU 10-17 13:27
PROVIDERS: Internal Medicine Nephrology; Nurse Practitioner Adult Health; Physician Assistant; Admitting Provider Internal Medicine; PCP Internal Medicine; Visit Provider Internal Medicine
DX: N17.9 Acute kidney failure, unspecified (principal); I12.9 Hypertensive chronic kidney disease with stage 1 through stage 4 chronic kidney disease, or unspecified chronic kidney disease; E11.22 Type 2 diabetes mellitus with diabetic chronic kidney disease; N18.9 Chronic kidney disease, unspecified; E83.42 Hypomagnesemia; E87.5 Hyperkalemia; K21.9 Gastro-esophageal reflux disease without esophagitis; M10.9 Gout, unspecified; E78.5 Hyperlipidemia, unspecified
CPT/HCPCS: 36415; 76775; 80048; 80053; 81001; 81050; 82570; 82948; 83036; 83605; 83690; 83735; 84100; 84156; 84166; 84300; 84540; 85014; 85018; 85025; 85027; 85999; 86334; 86335; 87040; 87086; 93005; 97161; 97165; A9270; J0696; J1644; J3475; J7030

== ENCOUNTER 2022-08-20 13:15 | Outpatient (NON) | payer MEDICARE, SELFPAY | END 2022-08-20 13:16 | disposition home or self-care (01) | LOC: ANHLAB 08-22 13:18 | PROVIDERS: PCP Internal Medicine; Visit Provider Surgery Plastic and Reconstructive Surgery | DX: D03.9 Melanoma in situ, unspecified (principal) | CPT/HCPCS: 88305 ==

== ENCOUNTER 2023-10-26 14:10 | Outpatient (CLI) | payer MEDICARE, SELFPAY ==
--- NOTE | 2023-10-26 14:26 | ECG_ITS ---
Test Date: 2023-10-26 14:39:17 Measurements Intervals [place] Rate: 84 P: 1 NE: 170 QRS: 1 QRSD: 101 T: -7 QT: 387 QTc: 459 Interpretive Statements SINUS RHYTHM POSSIBLE ANTERIOR MYOCARDIAL INFARCTION [30 ms Q WAVE IN V3/V4, OR R < 0.2 mV IN V4],, HOLD INFERIOR MYOCARDIAL INFARCTION , OLD ABNORMAL ECG WARNING: DATA QUALITY MAY AFFECT INTERPRETATION No previous ECG available for comparison Electronically Signed On 10-26-2023 15:33:47 CDT by Mason Cross M.D.
[2023-10-26 15:17] LABS: INR 0.9
[2023-10-26 15:19] LABS: Partial Thromboplastin Time 27.7 Seconds (22.3-36.8)
== END 2023-10-26 14:11 | disposition home or self-care (01) ==
LOC: ANHSURGERY 14:15
PROVIDERS: Anesthesiology; PCP Family Medicine; Visit Provider Urology
DX: I12.9 Hypertensive chronic kidney disease with stage 1 through stage 4 chronic kidney disease, or unspecified chronic kidney disease (principal); N18.32 Chronic kidney disease, stage 3b; Z01.818 Encounter for other preprocedural examination
CPT/HCPCS: 36415; 85610; 85730; 93005

== ENCOUNTER 2023-10-29 00:14 | Day surgery (SDC) | payer MEDICARE, SELFPAY ==
--- NOTE | 2023-10-21 13:20 | PC.NURSE ---
Report to the Outpatient Waiting Room, entrance under the green pavilion located off [facility], at time __11:00 AM on date ___10/29/23____. Planned Procedure Time: __1:00 PM . Time changes happen often and if your time is changed the preop area will call you the afternoon before. - You and your visitor will be asked to self-screen and do not enter if you have any COVID symptoms. - A mask is optional within the hospital at this time. Patients may have clear liquids (water, carbonated beverages, clear teas, apple juice) until 3 hours prior to surgery ( 10 AM)with a maximum of 20 ounces. - No food from midnight until time of surgery - Infants may have breast milk until 4 hours before surgery, infant formula 6 hours prior to surgery. - Children will be allowed to drink immediately following surgery. If applicable, please bring a bottle or sippy cup to assist with drinking. Juice, water, soda, and popsicles are readily available. For infants on formula, please bring formula the day of surgery. Pacifiers are allowed. Take the following medications with a SIP of water the morning of surgery: ____METOPROLOL,HYDRALAZINE DO NOT STOP ANY OF YOUR OTHER PRESCRIPTION MEDICATIONS PRIOR TO SURGERY ?EXCEPT THE FOLLOWING Medications to discontinue per physician ___TAKE 1/2 OF AM INSULIN DOSE PER ANESTHESIA.. HOLD VITAMINS AND SUPPLEMENTS 3 DAYS PRE OP LAST DOSE 10/25/23 Please no make-up, nail ukrainian, hairspray, perfume, deodorant, or body powder the day of surgery. No jewelry (including any body piercings) or valuables the day of surgery, leave them at home. Please take a shower or bath the night before, or the morning of, surgery with an antibacterial soap. Wear comfortable, loose fitting clothing. Children are encouraged to wear pajamas. - Jewelry must be removed prior to entering the operating room. Rings and piercings that are not removed may be cut off. - The hospital will not accept responsibility for valuables. - Please leave all valuables, including medications, at home the day of surgery. If you are going home after surgery, a licensed concrete mixing truck driver must drive you home. - NO public transportation without another adult if you receive anesthesia. - We recommend that an adult stay with you for 24 hours following discharge. - We also recommend that you do not drive, make important decision, drink alcoholic beverages, or take any drugs that were not prescribed by your health care provider for at least 24 hours after your discharge time. Follow any additional instructions given to you from your surgeon. If you or anyone in your household have experienced Covid symptoms in the past week, please notify your surgeon or the nurse liaison at the phone number below for possible testing. Telephone instructions given to ___PATIENT and asked if any additional questions and then verbalized understanding. Patient advised to call surgeon office or pre surgery nurse liaison [phone] if any additional questions.
[2023-10-21 13:37] VITALS: BMI 38.0
[2023-10-29] VITALS (10 sets, daily range): BP systolic 96–164; BP diastolic 49–82; PULSE 65–88; RESP 14–20; TEMP 36.2–36.4; O2SAT 95–100
--- NOTE | 2023-10-29 06:10 | WPDHPUPDATE1 ---
History and Physical Update Update Date/Time: 10/29/23 06:10 History and Physical has been reviewed, including an updated exam of the patient. There are NO changes in the patient's condition. Risks, benefits, and alternatives have been discussed and questions answered. Patient agrees to proceed with procedure.
[2023-10-29] MEDS: LACTATED RINGERS 1,000 ML 30 ML IV CONT ×2 (10:49→14:31)
[2023-10-29 10:53] LABS: Glucose Point of Care 91 mg/dl (65-105)
--- NOTE | 2023-10-29 11:20 | WPDANESEPPF ---
Anes - Initial Pre Proc Eval Procedure: Operation Date: 10/29/23 12:00 Proposed Procedures p Transurethral Resection Bladder Tumor with Gemcitabine Instillation - Sudheer Moy MD Date/Time: 10/29/23 11:20 Surgeon: Sudheer Moy MD Pre Op Diagnosis: bladder cancer Patient Data Age: 73 Gender: F Height: 1.68 m Weight: 106.7 kg Last Vital Signs Temp 97.5 F L 10/29/23 10:56 Pulse 68 10/29/23 10:56 Resp 16 10/29/23 10:56 BP 135/82 10/29/23 10:56 Pulse Ox 100 10/29/23 10:56 O2 Del Method Room Air 10/29/23 10:56 Allergies Allergy/AdvReac Type Severity Reaction Status Date / Time lisinopril AdvReac Cough Verified 10/29/23 10:18 sun screen Allergy Rash Uncoded 10/29/23 10:18 Home Medications Medication Instructions Recorded Confirmed Type lovastatin 20 mg tablet 20 mg PO HS 10/13/20 10/29/23 History omeprazole 20 mg capsule,delayed 20 mg PO DAILY 10/13/20 10/29/23 History release hydralazine 25 mg tablet 25 mg PO TID #60 tabs 10/16/20 10/29/23 Rx allopurinol 300 mg tablet 150 mg PO DAILY KIDNEY STONES 09/16/22 10/29/23 History cholecalciferol (vitamin D3) 25 25 mcg PO DAILY 09/16/22 10/29/23 History mcg (1,000 unit) capsule metoprolol succinate 50 mg 50 mg PO BID 09/16/22 10/29/23 History tablet,extended release 24 hr dapagliflozin propanediol 10 mg 10 mg PO DAILY 04/01/23 10/21/23 History tablet (Farxiga) glipizide 5 mg tablet 10 mg PO BID 04/01/23 10/29/23 History insulin degludec 100 unit/mL (3 50 unit subcut DAILY 04/01/23 10/29/23 History mL) subcutaneous pen (Tresiba FlexTouch U-100 insulin) magnesium oxide 400 mg (241.3 mg 500 mg PO BID 04/01/23 10/29/23 History magnesium) tablet Laboratory Tests 10/29/23 10:50 POC Capillary Glucose 91 mg/dl (65-105) Patient hx anesthesia problems: none Family hx anesthesia problems: none Results Review: All pre-operative results and documents have been reviewed as part of the pre-operative evaluation. [facility] Past Medical History Medical History Diabetes GERD (gastroesophageal reflux disease) Gout HTN (hypertension) Hyperlipidemia Insomnia Nephrolithiasis Family History Family History Father Alzheimer disease Prostate carcinoma Diabetes mellitus Mother Diabetes mellitus Advanced dementia Sibling Multiple sclerosis Diabetes mellitus Mental and behavioral problem in adult Social History Social History Smoking status: Never smoker Alcohol intake: never Substance use: never Substance use type: does not use Do You Feel Safe in your Home?: Yes Lack of Transportation: No Lack of Food: Never True Current Housing: I Have Housing Concerned About Future Housing: No Difficulty Paying Gas/Electric Bills: No Difficulty Paying for Meds: No Currently Unemployed: No Education: High School Diploma/GED Difficulty w/ Childcare or Family Care: No Living arrangements: alone Gender identity (if verbalized by the patient): Female Spiritual care concerns: No Anes - Eval Final PreProcedure Day of Procedure 10/29/23 11:20 Patient weight: obese Heart: regular rate and rhythm Lungs: clear to auscultation Airway: Mallampati scale class III Neurological: alert and oriented Last oral intake: >/= 8 hours ASA classification: III Emergent: no Anesthetic plan: proceed Anesthesia type and monitoring: general LMA and standard monitoring Results Review: All pre-operative results and documents have been reviewed as part of the pre-operative evaluation. HTN, hyperlipidemia, DM (fsbs 91). Informed Consent: The patient's anesthetic plan and its attendant risks and benefits were discussed with the patient/family/POA. Questions were solicited and answers provided to the satisf
[2023-10-29] MEDS: ceFAZolin 2 GM/D5W 50 ML 2 GM/50 ML BAG IVPB (12:47)
--- NOTE | 2023-10-29 13:22 | W.PM.PROC2 ---
Procedure Note - Detailed Date of Procedure 10/29/23 Pre-op Diagnosis Bladder cancer Post-op Diagnosis Same Procedure Performed TURBT (medium, 3cm) Surgeon Sudheer Moy MD Anesthesia General Description of Procedure The patient was brought to the operative suite where she is prepped and draped in a routine sterile fashion while in the dorsal lithotomy position. This is done after the uneventful administration of systemic sedation. 2% Xylocaine jelly is introduced intraurethrally and allowed to stand for an appropriate period of time. A 24F resectoscope sheath was placed in the bladder and the bladder is circumferentially inspected carefully. 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 The ureteral orifice was preserved throughout. This area is resected in its entirety with an attempt made to include detrusor muscle for pathological evaluation of invasion. The base and periphery of this resected side is cauterized with a loop electrode. The bladder is emptied and the resectoscope was removed. The patient is taken to the recovery room having tolerated this procedure well. Drains No Packing No Pathology None sent Complications No immediate complications Condition Stable
--- NOTE | 2023-10-29 13:25 | W.PM.PROC2 ---
Procedure Note - Detailed Date of Procedure 10/29/23 Pre-op Diagnosis Bladder cancer Post-op Diagnosis Same Procedure Performed Gemcitabine installation Surgeon Sudheer Moy MD Anesthesia General Description of Procedure With the patient in the supine position, a 16F Yin catheter is placed using sterile technique. Using a protective facemask, gown and double layer of gloves Gemcitabine 2gm in 100cc saline is administered through the catheter/into the bladder. The catheter is then plugged. Patient was instructed to lie supine x20min, then to roll both the left and right x20 min. each. Total dwell time will be 60 min., after which the bladder will be drained and catheter removed. Drains No Packing No Pathology None sent Complications No immediate complications
[2023-10-29] MEDS: SODIUM CHLORIDE 0.9% IV 23.7 ML, GEMCITABINE HCL 1,000 MG BLADDER ×2 (13:27→13:28)
[2023-10-29 13:47] LABS: Glucose Point of Care 66 mg/dl (65-105)
[2023-10-29 14:23] LABS: Glucose Point of Care 64 mg/dl (65-105)
[2023-10-29] MEDS: SODIUM CHLORIDE 0.9% IV 50 ML BAG 150 ML IRRIGATION (14:35)
[2023-10-29 14:42] LABS: Glucose Point of Care 84 mg/dl (65-105)
== END 2023-10-29 15:30 | disposition home or self-care (01) ==
PROVIDERS: PCP Family Medicine; Visit Provider Urology
PROC: 0TBB8ZZ Excision of Bladder, Via Natural or Artificial Opening Endoscopic (ICD-10-PCS; CPT 52235; principal; 2023-10-29 12:00)
DX: C67.2 Malignant neoplasm of lateral wall of bladder (principal); I10 Essential (primary) hypertension; E11.9 Type 2 diabetes mellitus without complications; E78.5 Hyperlipidemia, unspecified; K21.9 Gastro-esophageal reflux disease without esophagitis; M10.9 Gout, unspecified; E66.9 Obesity, unspecified; Z68.38 Body mass index [BMI] 38.0-38.9, adult; Z79.84 Long term (current) use of oral hypoglycemic drugs; Z79.4 Long term (current) use of insulin
CPT/HCPCS: 52235; 36415; 51720; 82948; 85610; 85730; 88305; 88307; 93005; J0690; J1100; J2405; J2704; J7120; J9201

== ENCOUNTER 2023-12-16 11:22 | Outpatient (CLI) | payer MEDICARE, SELFPAY ==
[2023-12-16 12:11] LABS: Anion Gap 13 mmol/L (4-12); Blood Urea Nitrogen 30 mg/dL (7-17); Calcium 9.2 mg/dL (8.4-10.2); Carbon Dioxide 25 mmol/L (22-30); Chloride 103 mmol/L (98-107); Estimated Glomerular Filt Rate 31; Glucose 137 mg/dL (65-110); Potassium 4.4 mmol/L (3.4-5.0); Sodium 141 mmol/L (137-145)
== END 2023-12-16 11:23 | disposition home or self-care (01) ==
PROVIDERS: Anesthesiology; PCP Family Medicine; Visit Provider Urology
DX: Z01.818 Encounter for other preprocedural examination (principal); E11.9 Type 2 diabetes mellitus without complications
CPT/HCPCS: 36415; 80048

== ENCOUNTER 2023-12-17 01:30 | Day surgery (SDC) | payer MEDICARE, SELFPAY ==
--- NOTE | 2023-12-09 07:09 | PM.HPGS ---
History of Present Illness History of Present Illness Consent: Risks, benefits, and alternatives have been discussed and questions answered. Patient agrees to proceed with procedure. Chief complaint: bladder tumor Narrative: Regina Keller is a 73 year old female Who underwent resection of a 3 cm bladder neoplasm that was situated just above the left ureteral orifice in October 2023. Pathology showed T1 high-grade lesion. She presents now for re-resection of bladder tumor base. She is aware of the risks including, not limited to, hematuria, need for additional therapy, compromise to the integrity of her bladder wall. Review of Systems Review of Systems: All systems reviewed & are unremarkable except as noted in HPI and below PMFSH Past Medical History Medical History Diabetes GERD (gastroesophageal reflux disease) Gout HTN (hypertension) Hyperlipidemia Insomnia Nephrolithiasis Family History Family History Father Alzheimer disease Prostate carcinoma Diabetes mellitus Mother Diabetes mellitus Advanced dementia Sibling Multiple sclerosis Diabetes mellitus Mental and behavioral problem in adult Social History Social History Smoking status: Never smoker Alcohol intake: never Substance use: never Substance use type: does not use Do You Feel Safe in your Home?: Yes Lack of Transportation: No Lack of Food: Never True Current Housing: I Have Housing Concerned About Future Housing: No Difficulty Paying Gas/Electric Bills: No Difficulty Paying for Meds: No Currently Unemployed: No Education: High School Diploma/GED Difficulty w/ Childcare or Family Care: No Living arrangements: alone Gender identity (if verbalized by the patient): Female Spiritual care concerns: No Meds Home Medications and Allergies Home Medications Medication Instructions Recorded Confirmed Type lovastatin 20 mg tablet 20 mg PO HS 10/13/20 10/29/23 History omeprazole 20 mg capsule,delayed 20 mg PO DAILY 10/13/20 10/29/23 History release hydralazine 25 mg tablet 25 mg PO TID #60 tabs 10/16/20 10/29/23 Rx allopurinol 300 mg tablet 150 mg PO DAILY KIDNEY STONES 09/16/22 10/29/23 History cholecalciferol (vitamin D3) 25 25 mcg PO DAILY 09/16/22 10/29/23 History mcg (1,000 unit) capsule metoprolol succinate 50 mg 50 mg PO BID 09/16/22 10/29/23 History tablet,extended release 24 hr dapagliflozin propanediol 10 mg 10 mg PO DAILY 04/01/23 10/21/23 History tablet (Farxiga) glipizide 5 mg tablet 10 mg PO BID 04/01/23 10/29/23 History insulin degludec 100 unit/mL (3 50 unit subcut DAILY 04/01/23 10/29/23 History mL) subcutaneous pen (Tresiba FlexTouch U-100 insulin) magnesium oxide 400 mg (241.3 mg 500 mg PO BID 04/01/23 10/29/23 History magnesium) tablet hydrocodone 5 mg-acetaminophen 325 1 - 2 tablet PO Q6H PRN pain #20 10/29/23 Rx mg tablet tabs Allergies Allergy/AdvReac Type Severity Reaction Status Date / Time lisinopril AdvReac Cough Verified 10/29/23 10:18 sun screen Allergy Rash Uncoded 10/29/23 10:18 Exam Const: General: no acute distress Resp: Effort & Inspection: normal respiratory effort GI: Inspection: non-distended GI Palp: No abdominal tenderness and No Guarding due to palpation present (GI) Auscultation: normal bowel sounds Assessment and Plan Assessment and plan (1) Cancer of overlapping sites of bladder: Code(s): C67.8 - Malignant neoplasm of overlapping sites of bladder Status: Acute Assessment and Plan: Re-resection bladder tumor base
[2023-12-15 10:57] VITALS: BMI 37.7
--- NOTE | 2023-12-15 11:19 | PC.NURSE ---
Report to the Outpatient Waiting Room, entrance under the green pavilion located off [facility], at time ___6:00AM____ on date ___12/17/23____. Planned Procedure Time: __7:30AM . Time changes happen often and if your time is changed the preop area will call you the afternoon before. - You and your visitor will be asked to self-screen and do not enter if you have any COVID symptoms. - A mask is optional within the hospital at this time. Patients may have clear liquids (water, carbonated beverages, clear teas, apple juice) until 3 hours prior to surgery with a maximum of 20 ounces. - No food from midnight until time of surgery. Take the following medications with a SIP of water the morning of surgery: ____HYDRALAZINE, METOPROLOL DO NOT STOP ANY OF YOUR OTHER PRESCRIPTION MEDICATIONS PRIOR TO SURGERY ?EXCEPT THE FOLLOWING Medications to discontinue per physician HOLD ALL VITAMINS/SUPPLEMENTS 3 DAYS PRE-OP PER ANESTHESIA Date to take last dose 12/14/23 Please no make-up, nail slovenian, hairspray, perfume, deodorant, or body powder the day of surgery. No jewelry (including any body piercings) or valuables the day of surgery, leave them at home. Please take a shower or bath the night before, or the morning of, surgery with an antibacterial soap. Wear comfortable, loose fitting clothing. - Jewelry must be removed prior to entering the operating room. Rings and piercings that are not removed may be cut off. - The hospital will not accept responsibility for valuables. - Please leave all valuables, including medications, at home the day of surgery. If you are going home after surgery, a licensed automation driver must drive you home. - NO public transportation without another adult if you receive anesthesia. - We recommend that an adult stay with you for 24 hours following discharge. - We also recommend that you do not drive, make important decision, drink alcoholic beverages, or take any drugs that were not prescribed by your health care provider for at least 24 hours after your discharge time. Follow any additional instructions given to you from your surgeon. If you or anyone in your household have experienced Covid symptoms in the past week, please notify your surgeon or the nurse liaison at the phone number below for possible testing. Telephone instructions given to ____PATIENT and asked if any additional questions and then verbalized understanding. Patient advised to call surgeon office or pre surgery nurse liaison [phone] if any additional questions.
[2023-12-17] VITALS (8 sets, daily range): BP systolic 114–139; BP diastolic 74–80; PULSE 66–79; RESP 13–16; TEMP 36.2–36.6; O2SAT 95–100
--- NOTE | 2023-12-17 06:11 | WPDHPUPDATE1 ---
History and Physical Update Update Date/Time: 12/17/23 06:11 History and Physical has been reviewed, including an updated exam of the patient. There are NO changes in the patient's condition. Risks, benefits, and alternatives have been discussed and questions answered. Patient agrees to proceed with procedure.
[2023-12-17 06:41] LABS: Glucose Point of Care 165 mg/dl (65-105)
--- NOTE | 2023-12-17 06:49 | WPDANESEPPF ---
Anes - Initial Pre Proc Eval Procedure: Operation Date: 12/17/23 07:30 Proposed Procedures p Re-Resection Bladder Tumor Base - Sudheer Moy MD Date/Time: 12/17/23 06:49 Surgeon: Sudheer Moy MD Pre Op Diagnosis: bladder tumor Patient Data Age: 73 Gender: F Height: 1.68 m Weight: 106 kg Allergies Allergy/AdvReac Type Severity Reaction Status Date / Time lisinopril AdvReac Cough Verified 12/15/23 10:52 sun screen Allergy Rash Uncoded 12/15/23 10:52 Home Medications Medication Instructions Recorded Confirmed Type lovastatin 20 mg tablet 20 mg PO HS 10/13/20 12/15/23 History omeprazole 20 mg capsule,delayed 20 mg PO DAILY 10/13/20 12/15/23 History release hydralazine 25 mg tablet 25 mg PO TID #60 tabs 10/16/20 12/15/23 Rx allopurinol 300 mg tablet 150 mg PO DAILY KIDNEY STONES 09/16/22 12/15/23 History cholecalciferol (vitamin D3) 25 25 mcg PO DAILY 09/16/22 12/15/23 History mcg (1,000 unit) capsule metoprolol succinate 50 mg 50 mg PO BID 09/16/22 12/15/23 History tablet,extended release 24 hr dapagliflozin propanediol 10 mg 10 mg PO DAILY 04/01/23 12/15/23 History tablet (Farxiga) glipizide 5 mg tablet 10 mg PO BID 04/01/23 12/15/23 History magnesium oxide 400 mg (241.3 mg 500 mg PO BID 04/01/23 12/15/23 History magnesium) tablet hydrocodone 5 mg-acetaminophen 325 1 - 2 tablet PO Q6H PRN pain #20 10/29/23 12/15/23 Rx mg tablet tabs insulin degludec 100 24 unit subcut QAM 12/15/23 12/15/23 History unit-liraglutide 3.6 mg/mL(3 mL) subcutaneous pen (Xultophy 100/3.6) Laboratory Tests 12/17/23 06:32 POC Capillary Glucose 165 H mg/dl (65-105) Patient hx anesthesia problems: none Family hx anesthesia problems: none Results Review: All pre-operative results and documents have been reviewed as part of the pre-operative evaluation. PMFSH Past Medical History Medical History Diabetes GERD (gastroesophageal reflux disease) Gout HTN (hypertension) Hyperlipidemia Insomnia Nephrolithiasis Family History Family History Father Alzheimer disease Prostate carcinoma Diabetes mellitus Mother Diabetes mellitus Advanced dementia Sibling Multiple sclerosis Diabetes mellitus Mental and behavioral problem in adult Social History Social History Smoking status: Never smoker Alcohol intake: current Substance use: never Substance use type: does not use Do You Feel Safe in your Home?: Yes Lack of Transportation: No Lack of Food: Never True Current Housing: I Have Housing Concerned About Future Housing: No Difficulty Paying Gas/Electric Bills: No Difficulty Paying for Meds: No Currently Unemployed: No Education: High School Diploma/GED Difficulty w/ Childcare or Family Care: No Living arrangements: alone Gender identity (if verbalized by the patient): Female Spiritual care concerns: No Anes - Eval Final PreProcedure Day of Procedure 12/17/23 06:49 Patient weight: obese Heart: regular rate and rhythm Lungs: clear to auscultation Airway: Mallampati scale class II Neurological: alert and oriented Last oral intake: >/= 8 hours ASA classification: III Emergent: no Anesthetic plan: proceed Anesthesia type and monitoring: general LMA and standard monitoring Results Review: All pre-operative results and documents have been reviewed as part of the pre-operative evaluation. Informed Consent: The patient's anesthetic plan and its attendant risks and benefits were discussed with the patient/family/POA. Questions were solicited and answers provided to the satisfaction of the patient/family/POA.
[2023-12-17] MEDS: LACTATED RINGERS 1,000 ML 30 ML IV CONT (06:51)
[2023-12-17] MEDS: ceFAZolin 2 GM/D5W 50 ML 2 GM/50 ML BAG IVPB (07:21)
--- NOTE | 2023-12-17 07:46 | W.PM.PROC2 ---
Procedure Note - Detailed Date of Procedure 12/17/23 Pre-op Diagnosis Recent T1, high-grade bladder tumor Post-op Diagnosis Same Procedure Performed Re-resection bladder tumor (TURBT, 2 cm, small) Surgeon Sudheer Moy MD Anesthesia General Description of Procedure patient is brought to the operative suite where she was prepped draped in routine sterile fashion while in dorsal lithotomy position after the uneventful induction of a general LMA anesthetic. Twenty-four F resectoscope was placed in her bladder. The bladder was carefully inspected. There was no obvious recurrent neoplasm. I can clearly see the site of recent resection just above her left ureteral orifice. I repeated resection at that site with care taken to avoid injuring to the left ureteral orifice. Base and periphery cauterized with the loop electrode. All chips were evacuated. Patient tolerated procedure well and was taken recovery room in good condition Drains No Packing No Pathology Yes Complications No immediate complications
[2023-12-17 07:58] LABS: Glucose Point of Care 144 mg/dl (65-105)
== END 2023-12-17 09:35 | disposition home or self-care (01) ==
PROVIDERS: PCP Family Medicine; Visit Provider Urology
PROC: 0TBB8ZZ Excision of Bladder, Via Natural or Artificial Opening Endoscopic (ICD-10-PCS; CPT 52234; principal; 2023-12-17 07:30)
DX: C67.8 Malignant neoplasm of overlapping sites of bladder (principal); I10 Essential (primary) hypertension; E78.5 Hyperlipidemia, unspecified; E11.9 Type 2 diabetes mellitus without complications; K21.9 Gastro-esophageal reflux disease without esophagitis; M10.9 Gout, unspecified; Z79.84 Long term (current) use of oral hypoglycemic drugs; Z79.4 Long term (current) use of insulin
CPT/HCPCS: 52234; 36415; 80048; 82948; 88305; 88342; J0690; J2371; J2405; J2704; J3010; J7120

== ENCOUNTER 2025-04-24 14:16 | Outpatient (CLI) | payer MEDICARE, SELFPAY ==
--- NOTE | 2025-04-24 14:30 | ECG_ITS ---
Test Date: 2025-04-24 14:32:45 Measurements Intervals [place] Rate: 80 P: 33 SC: 173 QRS: 7 QRSD: 102 T: 3 QT: 397 QTc: 461 Interpretive Statements SINUS RHYTHM VOLTAGE CRITERIA FOR LVH ANTERIOR INFARCT, AGE INDETERMINATE CONSIDER INFERIOR INFARCT, AGE INDETERMINATE ABNORMAL ECG Compared to ECG 10/26/2023 14:39:17 No significant changes Electronically Signed On 04-24-2025 14:56:40 STEAM BONE PRESS TENDER by Janes Hannah D.O.
[2025-04-24 14:55] LABS: INR 1.0; Prothrombin Time 13.6 Seconds (11.1-14.7)
[2025-04-24 14:56] LABS: Partial Thromboplastin Time 25.9 Seconds (22.3-36.8)
== END 2025-04-24 14:17 | disposition home or self-care (01) ==
LOC: ANHSURGERY 14:20
PROVIDERS: Anesthesiology; PCP Family Medicine; Visit Provider Urology
DX: Z01.818 Encounter for other preprocedural examination (principal); I12.9 Hypertensive chronic kidney disease with stage 1 through stage 4 chronic kidney disease, or unspecified chronic kidney disease; N18.32 Chronic kidney disease, stage 3b; R94.31 Abnormal electrocardiogram [ECG] [EKG]
CPT/HCPCS: 36415; 85610; 85730; 93005

== ENCOUNTER 2025-04-27 01:01 | Day surgery (SDC) | payer MEDICARE, SELFPAY ==
--- NOTE | 2025-04-17 06:57 | PM.HPGS ---
History of Present Illness History of Present Illness Consent: Risks, benefits, and alternatives have been discussed and questions answered. Patient agrees to proceed with procedure. Chief complaint: Bladder Ca Narrative: Regina Keller is a 74 year old female with a history of recurrent urothelial carcinoma of the bladder dating back to October 2023. Recent cystoscopy demonstrated a tiny recurrence just above the left ureteral orifice. Review of Systems Review of Systems: All systems reviewed & are unremarkable except as noted in HPI and below PMFSH Past Medical History Medical History (Updated 03/29/25 @ 10:22 by Annel Peterson MD) Sec DM hpros nt [facility] Insomnia Gout GERD (gastroesophageal reflux disease) Nephrolithiasis Hyperlipidemia HTN (hypertension) Diabetes Family History Family History Father Alzheimer disease Prostate carcinoma Diabetes mellitus Mother Diabetes mellitus Advanced dementia Sibling Multiple sclerosis Diabetes mellitus Mental and behavioral problem in adult Social History Social History (Updated 03/29/25 @ 10:00 by Regina Velasco MA) Smoking status: Never smoker Alcohol intake: current Substance use: never Substance use type: does not use Lack of Transportation: No Lack of Food: Never True Current Housing: I Have Housing Concerned About Future Housing: No Difficulty Paying Gas/Electric Bills: No Difficulty Paying for Meds: No Currently Unemployed: No Education: High School Diploma/GED Difficulty w/ Childcare or Family Care: No Living arrangements: alone Gender identity (if verbalized by the patient): Female Spiritual care concerns: No Meds Home Medications and Allergies Home Medications ?Medication ?Instructions ?Recorded ?Confirmed ?Type lovastatin 20 mg tablet 20 mg PO HS 10/13/20 03/29/25 History omeprazole 20 mg capsule,delayed 20 mg PO DAILY 10/13/20 03/29/25 History release hydralazine 25 mg tablet 25 mg PO TID #60 tabs 10/16/20 03/29/25 Rx allopurinol 300 mg tablet 150 mg PO DAILY KIDNEY STONES 09/16/22 03/29/25 History cholecalciferol (vitamin D3) 25 25 mcg PO DAILY 09/16/22 03/29/25 History mcg (1,000 unit) capsule metoprolol succinate 50 mg 50 mg PO BID 09/16/22 03/29/25 History tablet,extended release 24 hr dapagliflozin propanediol 10 mg 10 mg PO DAILY 04/01/23 03/29/25 History tablet (Farxiga) glipizide 5 mg tablet 10 mg PO BID 04/01/23 03/29/25 History magnesium oxide 400 mg (241.3 mg 500 mg PO BID 04/01/23 03/29/25 History magnesium) tablet insulin degludec 100 24 unit subcut QAM 12/15/23 03/29/25 History unit-liraglutide 3.6 mg/mL(3 mL) subcutaneous pen (Xultophy 100/3.6) oxybutynin chloride 5 mg tablet 5 mg PO DAILY 03/29/24 03/29/25 History Allergies Allergy/AdvReac Type Severity Reaction Status Date / Time lisinopril AdvReac Cough Verified 03/29/25 09:50 sun screen Allergy Rash Uncoded 03/29/25 09:50 Exam Const: General: no acute distress Resp: Effort & Inspection: normal respiratory effort GI: Inspection: non-distended GI Palp: No abdominal tenderness and No Guarding due to palpation present (GI) Auscultation: normal bowel sounds Assessment and Plan Assessment and plan (1) Cancer of overlapping sites of bladder: Code(s): C67.8 - Malignant neoplasm of overlapping sites of bladder Status: Acute Assessment and Plan: TURBT followed by gemcitabine installation
[2025-04-20 09:26] VITALS: BMI 35.6
--- NOTE | 2025-04-20 09:43 | PC.NURSE ---
[facility] has started construction of its new state of the art ER which will open Spring 2026. With this, we anticipate parking may be a challenge for some our surgical patients and families. Parking spaces are limited but are available for all Surgical, obstetrics, and ER patients sharing this lot. If you arrive and find you are having a hard time finding a parking space, please note that we understand the challenges, please drive around the hospital and park near Hospital Entrance 1. When you enter this entrance, you can ask a volunteer to direct or take you back to the surgical waiting area to check in. We appreciate everyone?s understanding of these expected challenges while we build for your future. Report to the Outpatient Waiting Room, entrance under the green pavilion located off [address], at time __7:15am____ on date __04/27/25___. Planned Procedure Time: ____9:15AM___.? Time changes happen often and if your time is changed the preop area will call you the afternoon before. - You and your visitor will be asked to self-screen and do not enter if you have any COVID symptoms. Please call surgeon if you need to reschedule. - A mask is optional within the hospital at this time. Patients may have clear liquids (water, carbonated beverages, clear teas, apple juice) until 3 hours prior to surgery (6:15AM) with a maximum of 20 ounces. - No food from midnight until time of surgery and no smoking, or chewing tobacco (or any form of nicotine). No chewing gum, candy or mints. Take only the following medications with a SIP of water on the morning of surgery: __HYDRALAZINE, METOPROLOL DO NOT STOP ANY OF YOUR OTHER PRESCRIPTION MEDICATIONS PRIOR TO SURGERY EXCEPT THE FOLLOWING Hold all vitamins and supplements for 3 days per anesthesiologist.--LAST DOSE 04/23/25 Medications to discontinue per physician NONE Date to take last dose Please no make-up, nail welsh, hairspray, perfume, deodorant, or body powder the day of surgery.? No jewelry (including any body piercings) or valuables the day of surgery, leave them at home.? Please take a shower or bath the night before, or the morning of, surgery with an antibacterial soap.? Wear comfortable, loose fitting clothing.? - Jewelry must be removed prior to entering the operating room.? Rings and piercings that are not removed may be cut off. - The hospital will not accept responsibility for valuables.? - Please leave all valuables, including medications, at home the day of surgery. If you are going home after surgery, a licensed bookmobile driver must drive you home.? - NO public transportation without another adult if you receive anesthesia. - We recommend that an adult stay with you for 24 hours following discharge. - We also recommend that you do not drive, make important decision, drink alcoholic beverages, or take any drugs that were not prescribed by your health care provider for at least 24 hours after your discharge time. Follow any additional instructions given to you from your surgeon. Telephone instructions given to ___PATIENT and asked if any additional questions and then verbalized understanding. Patient advised to call surgeon office or pre surgery nurse liaison [phone] if any additional questions.
[2025-04-27] VITALS (20 sets, daily range): BP systolic 105–150; BP diastolic 55–96; PULSE 81–114; RESP 15–20; TEMP 36.2–37; O2SAT 90–100; BMI 36.0
--- OUTSIDE RECORDS SUMMARY | 2025-04-27 01:05 | XMS_ITS | Encounter Summary ---
Author Organization [facility] Address [address] [place] [address] Care Team Providers Care Assembler Steam And Gas Turbine Name Role Phone Roel Norman MD Primary Care Provider + Encounter Details Date Type Department Care Team (Late st Contact Info) Description 08/08/[address] [facility] DermPath Lab [address] [place] [address] Jc Woodard MD [address] [place] [address] Social History Tobacco Use Types Packs/Day Years Used Date Smoking Tobacco: Never Assessed Comments Unknown Sex and Gender Information Value Date Recorded Sex Assigned at Not on file Legal Sex Female 5:24 AM CEREAL POPPER Gender Identity Not on file Sexual Orientation Not on file documented as of this encounter Plan of Treatment Not on file documented as of this encounter Procedures Procedure Name Priority Date/Time Associated Diagnosis Comments DERMATOPATHOLOGY Routine 08/06/2022 3:33 AM CDT documented in this encounter Results * DERMATOPATHOLOGY (08/06/2022 3:33 AM CDT) Case Report Dermatopathology Report Case: [id number] Authorizing Provider: Jc Woodard MD Collected: 08/06/2022 03:33 AM Ordering Location: [facility] Derm[facility] Lab Received: 08/08/2022 09:42 AM Pathologist: Elisa Camacho MD Specimen: Skin, right upper FH 4:24 PM CDT DERMATOPATHOLOGY LABORATORY Final Diagnosis Specimen A. 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 The specimen consists of a shave biopsy measuring 4x3x1 mm. Jar 0. 4:24 PM CDT DERMATOPATHOLOGY LABORATORY Microscopic Description Specimen A. SKIN, right upper FH: There is a proliferation of melanocytes distributed in an irregular pattern along the dermal-epidermal junction with single cells predominating. Extension down the follicular epithelium and focal areas of confluence are present. This melanocytic proliferation is highlighted on MART-1/Melan-A. This lesion is present at the margin of the specimen. 4:24 PM CDT DERMATOPATHOLOGY LABORATORY Disclaimer An external and internal positive and negative controls are appropriate for the histochemical, immunohistochemical and immunofluorescence stain(s) in this case (if any), except where stated explicitly. The performance characteristics of the stain(s) cited in this report were developed and its performance characteristic determined by the Dermatopathology Laboratory at [facility], directed by Dr. Loren Lockwood. These tests need not be, and therefore are not, approved by the [place] Food and Drug Administration. The tests are used for clinical purposes. Billing Codes Specimen Charges Stain Charges 52661 1 17802 1 3 4:24 PM CDT DERMATOPATHOLOGY LABORATORY Embedded Images 4:24 PM CDT DERMATOPATHOLOGY LABORATORY Pathology/Cytolo gy TISSUE SPECIMEN FROM SKIN / Unknown 08/06/2022 3:33 AM CDT 08/08/2022 9:42 AM CDT us Jc Woodard MD LAB - PATHOLOGY/CYTOLOGY ORDER BENNY Final Result DERMATOPATHOLOGY LABORATORY [facility] - Department of Dermatology [address], [address] [phone] documented in this encounter Visit Diagnoses Not on filedocumented in this encounter Care Teams Assembler Steam And Gas Turbine Relationship Specialty Start Date End Date Roel Norman MD [address] [place] [id number] PCP - General 09/08/22 documented as of this encounter
--- OUTSIDE RECORDS SUMMARY | 2025-04-27 01:05 | XMS_ITS | Clinical Summary ---
Author Organization [facility] Address [address] [place] [address] Care Team Providers Care Road Service Locksmith Name Role Phone Roel Norman MD Primary Care Provider + Source Comments [facility],non-owned Affiliates and Associated Physician Practices is amultiple site organization consisting of ambulatory clinics and hospital sitesin [place], [place], [place] and [place]. This disclosure is being madepursuant to the Care Everywhere program and may not contain all information available regarding this patient. Last updated 18.[facility] Social History Tobacco Use Types Packs/Day Years Used Date Smoking Tobacco: Never Assessed Comments Unknown Sex and Gender Information Value Date Recorded Sex Assigned at Not on file Legal Sex Female 5:24 AM FUR TRIMMER Gender Identity Not on file Sexual Orientation Not on file Plan of Treatment Health Maintenance Due Date Last Done Comments DTAP/TDAP/TD VACCINES (1 - Tdap) 1967 PNEUMOCOCCAL VACCINE 50+ (1 of 1 - PCV) 1998 ZOSTER VACCINE (1 of 2) 1998 Respiratory Syncytial Virus (RSV) Vaccine Pt: or over 60 yrs (1 - 1-dose 75+ series) 2023 DEPRESSION SCREENING 05/11/2024 MEDICARE AWV CALENDAR YEAR 2024 COVID-19 VACCINE (2024- season) 2025 09/17/2021, 03/07/2021, 06/05/2020, Additional history exists HEPATITIS C SCREENING Completed 10/16/2021 BONE DENSITY TESTING Completed 11/20/2021 INFLUENZA VACCINE Completed 02/12/2025, , 01/26/2023, Additional history exists HEPATITIS B VACCINE Aged Out No longe r eligible based on patient's age to complete this topic HIB VACCINE Aged Out No longer eligi ble based on patient's age to complete this topic HPV VACCINE Aged Out No longer eligi ble based on patient's age to complete this topic MENINGOCOCCAL (Group B) VACCINE SHARED DECISION-MAKING Aged Out No longer eligible based on patient's age to complete this topic MENINGOCOCCAL GROUPS A/C/Y/W VACCINE Aged Out No longer eligible based on patient's age to complete this topic Insurance AETNA AETNA MEDICARE ADV SELF PAY NO INSURANCE Member Subscriber Plan / Payer (Ef fective for All Dates) Name:Regina Keller Member ID:Not on file Relation to Subscriber:Not on file Name:REGINA KLELER Subscriber ID:Not on file (Home) Address: [address] [place] [address] Payer ID:Not on file Group ID:Not on file Type:Self Pay Address: [place], [place] * Guarantor: REGINA KELLER Account Type Relation to Patient Date of Phone Billing Address Personal/Family [address] [place] [address] AETNA MEDICARE ADV SELF PAY NO INSURANCE Member Subscriber Plan / Payer (Ef fective for All Dates) Name:Regina Keller Member ID:Not on file Relation to Subscriber:Not on file Name:REGINA KELLER Subscriber ID:Not on file (Home) Address: [facility] [place] [address] Payer ID:Not on file Group ID:Not on file Type:Self Pay Address: [place], [place] * Guarantor: REGINA KELLER Account Type Relation to Patient Date of Phone Billing Address Personal/Family [address] [place] [address] AETNA MEDICARE ADV SELF PAY NO INSURANCE Member Subscriber Plan / Payer (Ef fective for All Dates) Name:Krishna Regina Jessica Member ID:Not on file Relation to Subscriber:Not on file Name:KELLERREGINA Subscriber ID:Not on file (Home) Address: [address] [place] [address] [place] [address] Payer ID:Not on file Group ID:Not on file Type:Self Pay Address: [place], [place] * Guarantor: REGINA KELLER Account Type Relation to Patient Date of Phone Billing Address Personal/Family [address] [place] [address] AETNA MEDICARE ADV SELF PAY NO INSURANCE Member Subscriber Plan / Payer (Ef fective for All Dates) Name:Regina Keller Member ID:Not on file Relation to Subscriber:Not on file Name:KRISHNAREGINA Subscriber ID:Not on file (Home) Address: [address] [place] [address] [place] [address] Payer ID:Not on file Group ID:Not on file Type:Self Pay Address: [place], [place] Care Teams Road Service Locksmith Relationship Specialty Start Date End Date Roel Norman MD [address] [place] [address] PCP - General 09/08/22
--- OUTSIDE RECORDS SUMMARY | 2025-04-27 01:05 | XMS_ITS | Clinical Summary ---
Author Organization [facility] Address [address], [facility] [address] [place] [address] Phone Care Team Providers Care Watch Engineer Name Role Phone Roel Norman MD Primary Care Provider U Cody Pérez MD Unavailable Allergies No known active allergies Medications allopurinol (ZYLOPRIM) 300 MG Tablet Take 300 mg by mouth daily. 9 Active lovastatin (MEVACOR) 20 MG Tablet Take 1 Tab by mouth daily. 0 Active metFORMIN (GLUCOPHAGE) 500 MG Tablet Take 1,000 mg by mouth 2 times daily. 9 Active omeprazole (PRILOSEC) 20 MG CAPSULE DELAYED RELEASE Take 20 mg by mouth daily. 9 Active pioglitazone (ACTOS) 15 MG Tablet Take 15 mg by mouth daily. 9 Active Semaglutide, 1 MG/DOSE, 2 MG/1.5ML Solution Pen-injector 1 mg by Subcutaneous route once a week. 9 Active zolpidem (AMBIEN) 5 MG Tablet Take 5 mg by mouth nightly as needed. 9 Active Cholecalciferol (VITAMIN D-3 PO) Take by mouth. Activ e valsartan (DIOVAN) 80 MG TabletIndicatio ns:Hypertension Take 80 mg by mouth daily. Indications: High Blood Pressure Disorder Active Active Problems Problem Noted Date Diagnosed Date B12 deficiency 11/03/2019 Iron deficiency anemia, unspecified 11/03/2019 Family History Medical History Relation Name Comments Diabetes Brother Diabetes Father Cancer Maternal Grandfather Breast Cancer Maternal Grandmother Cancer Maternal Grandmother Diabetes Mother Cancer Paternal Grandfather Stomach Cancer Paternal Grandfather Multiple Sclerosis Sister Relation Name Status Comments Brother Father Maternal Grandfather Maternal Grandmother Mother Paternal Grandfather Sister Social History Tobacco Use Types Packs/Day Years Used Date Smoking Tobacco: Never Comments Unknown Sex and Gender Information Value Date Recorded Sex Assigned at Not on file Legal Sex Female 12:37 PM CDT Gender Identity Not on file Sexual Orientation Not on file Last Filed Vital Signs Vital Sign Reading Time Taken Comments Blood Pressure 138/78 04/12/2020 9:25 AM CERTIFIED ALCOHOL COUNSELOR Pulse 94 04/12/2020 9:25 AM CERTIFIED ALCOHOL COUNSELOR Temperature 36.7 C (98 F) 04/12/2020 9:25 AM CERTIFIED ALCOHOL COUNSELOR Respiratory Rate 18 04/12/2020 9:25 AM CERTIFIED ALCOHOL COUNSELOR Oxygen Saturation 94% 04/12/2020 9:25 AM CERTIFIED ALCOHOL COUNSELOR Inhaled Oxygen Concentration - - Weight 95.3 kg (210 lb) 04/12/2020 9:25 AM CERTIFIED ALCOHOL COUNSELOR Height 167.6 cm (5' 6) 11/03/2019 8:41 AM CDT Body Mass Index 33.89 11/03/2019 8:41 AM CDT Plan of Treatment Health Maintenance Due Date Last Done Comments Hepatitis C Virus (HCV) Screening 1950 TdaP Immunization 1950 Medicare Initial AWV [id number] 05/11/2014 Respiratory Syncytial Virus (RSV) Immunization (Adult) (1 - 1-dose 75+ series) 2023 Influenza Immunization (#1) 2025 08/2 11/2019, 02/07/2019, 02/07/2019, Additional history exists SARS-COV-2 Immunization (2024- season) 2025 Zoster Immunization Completed 10/20/2019, 0 Pneumococcal Immunization (50+ years) Completed 01/20/2020, 03/17/2016, 04/14/2014 Pneumococcal Immunization Combined Discontinued 01/20/2020, 03/17/2016, 04/14/2014 Hepatitis B Immunization Aged Out No longer eligible based on patient's age to complete this topic Human Papillomavirus (HPV) Immunization (No Doses Required) Completed Meningococcal Immunization (ACWY) Aged Out No longer eligible based on patient's age to complete this topic Rotavirus Immunization Aged Out No lo nger eligible based on patient's age to complete this topic Insurance MEDICARE AETNA [facility] Care Teams Watch Engineer Relationship Specialty Start Date End Date Roel Norman MD PCP - General Internal Medicine 10/26/19 Cody Pa MD Consulting Physician Oncology 10/26/19
--- OUTSIDE RECORDS SUMMARY | 2025-04-27 01:07 | XMS_ITS | Clinical Summary ---
Author Organization [facility] Address [address] [place] [address] Phone Care Team Providers Care Manufacturing Intern Name Role Phone Roel Norman MD Primary Care Provider [phone] Allergies Active Allergy Reactions Criticality Noted Date Comments Aminobenzoate (Paba) Rash Low 10/12/2020 Medications allopurinol (ZYLOPRIM) 300 MG tablet Take 300 mg by mouth 1 (one) time each day 1 Active cholecalciferol (VITAMIN D-3) 25 MCG (1000 UT) tablet Take 1,000 Units by mouth daily Active cyanocobalamin (VITAMIN B-12) 1000 MCG tablet Take 1,000 mcg by mouth daily Active OneTouch Ultra test strip TEST 3 TIMES PER DAY 1 Active hydrALAZINE (APRESOLINE) 25 MG tablet TAKE 1 TABLET BY MOUTH 3 TIMES A DAY. DO NOT TAKE IF SBP 100 OR DBP 50 1 Active lovastatin (MEVACOR) 20 MG tablet TAKE 1 TABLET BY MOUTH NIGHTLY AT BEDTIME 1 Active magnesium oxide (MAG-OX) 400 MG tablet Take 1 tablet by mouth 2 (two) times a day 1 Active omeprazole (PriLOSEC) [address] capsule Take by mouth 1 (one) time each day 1 Active ondansetron ODT (ZOFRAN-ODT) 4 MG dispersible tablet Take 4 mg by mouth every 8 (eight) hours if needed for nausea 1 Active Ozempic, 1 MG/DOSE, 2 MG/1.5ML solution pen-injector INJECT 1 MG INTO THE SKIN ONCE A WEEK. 1 Active triamterene-hyd roCHLOROthiazid e (MAXZIDE-25) 37.5-25 MG per tablet Take 1 tablet by mouth 1 (one) time each day 1 Active valsartan (DIOVAN) 320 MG tablet TAKE 2 TABLETS (320 MG TOTAL) BY MOUTH DAILY. 1 Active zolpidem (AMBIEN) 5 MG tablet Take 5 mg by mouth 9 Active benzonatate (TESSALON) 200 MG capsule Take 200 mg by mouth 3 times daily as needed 1 Active repaglinide (PRANDIN) 1 MG tablet Take one tab 2 times per day before meals 1 Active pioglitazone (ACTOS) 45 MG tablet TAKE 1 TABLET BY MOUTH DAILY. START ON 05/26/2020 AFTER CURRENT PIOGLITAZONE SUPPLY IS COMPLETED 2 Active glipiZIDE (GLUCOTROL) 5 MG tablet Take by mouth 2 Active insulin degludec (Tresiba FlexTouch) 100 UNIT/ML injection Inject 32 Units under the skin in the morning. 2 Active Insulin Pen Needle (Pen [place]) 32G X 4 MM misc Use once daily with insulin 2 Active metoprolol tartrate (LOPRESSOR) 50 MG tablet Take 50 mg by mouth in the morning and 50 mg in the evening. 2 Active Active Problems Problem Noted Date Diagnosed Date Type 2 diabetes mellitus without complication Closed fracture proximal phalanx, toe 07/07/2021 Overview (08/21/2021): Last Assessment & Plan: Maintain postop shoe. Consider xuan taping. Follow-up in 4 weeks for repeat evaluation and x-ray Olecranon bursitis of left elbow 06/06/2021 Overview (08/21/2021): Last Assessment & Plan: We discussed the risks, benefits and alternatives. At this point in time she would like to have it removed. Steroid is injected after aspiration. Follow-up in 4 weeks for repeat evaluation Body mass index 30+ - obesity 03/27/2021 Cough 11/19/2020 Upper respiratory infection 11/19/2020 Acute renal failure syndrome 10/24/2020 History of malignant basal cell neoplasm of skin 07/19/2020 Primary insomnia 07/19/2020 Cobalamin deficiency 11/03/2019 Iron deficiency anemia 11/03/2019 Varicose veins of left lower extremity with infl ammation 04/29/2019 Hiatal hernia 07/24/2017 Renal stone 07/24/2017 Gastroesophageal reflux disease 09/17/2015 Benign essential hypertension 04/10/2014 Anemia 05/02/2013 Hyperlipidemia 11/04/2012 Type II diabetes mellitus uncontrolled 3 Immunizations Immunization Administration Dates Next Due Influenza LAIV (Nasal) 02/07/2019,02/01/2018 Influenza Split High Dose Preservative Free IM 01/25/2022 Influenza Trivalent Adjuvanted 02/07/2019 Influenza, Injectable, Quadrivalent 02/07/2019 Influenza, Quadrivalent 01/22/2021,02/07/2019, Influenza, Unspecified 01/05/2020,2017,02/23/2013,2011 Moderna Sars-cov-2 Vaccination 06/05/2020,2019 Pneumococcal Conjugate 01/20/2020,04/14/2014 Pneumococcal Conjugate 13-Valent 03/17/2016 Tdap 08/05/2007 Zoster 06/21/2012 Zoster Recombinant 10/20/2019,07/08/2019 Family History Medical History Relation Comments Diabetes mellitus Father Prostate cancer Father Dementia Mother Diabetes mellitus Mother Relation Status Comments Father Mother Social History Tobacco Use Types Packs/Day Years Used Date Smoking Tobacco: Never Smokeless Tobacco: Never Tobacco Cessation:Counseling Given: Not Answered Alcohol Use Standard Drinks/Week Comments Never 0 (1 standard drink = 0.6 oz pur e alcohol) Comments Unknown Sex and Gender Information Value Date Recorded Sex Assigned at Not on file Legal Sex Female 10:53 AM MDT Gender Identity Not on file Sexual Orientation Not on file Last Filed Vital Signs Vital Sign Reading Time Taken Comments Blood Pressure 134/72 03/19/2022 10:01 AM TRIAGE NURSE Pulse - - Temperature 36.1 C (96.9 F) 03/19/2022 10:01 AM TRIAGE NURSE Respiratory Rate 18 03/19/2022 10:01 AM TRIAGE NURSE Oxygen Saturation - - Inhaled Oxygen Concentration - - Weight 109 kg (239 lb 12.8 oz) 03/19/2022 10:01 AM TRIAGE NURSE Height 167.6 cm (5' 6) 03/19/2022 10:01 AM TRIAGE NURSE Body Mass Index 38.7 03/19/2022 10:01 AM TRIAGE NURSE Plan of Treatment Health Maintenance Due Date Last Done Comments Pneumococcal PPSV23/PCV13 65 + Years / Low and Medium Risk (2 of 3 - PCV20 or PCV21) 03/17/2017 03/17/2016 COVID-19 Vaccine (4 - 2024-2 6 season) 2025 09/17/2021, 06/05/2020, 05/08/2020 Influenza Vaccine (#1) 2025 , 02/07/2019, 02/07/2019, Additional history exists Insurance A[employer]NA MEDICARE ADVANTAGE Care Teams Manufacturing Intern Relationship Specialty Start Date End Date Roel Norman MD [address] [place] [phone] PCP - General Internal Medicine 10/22/20
--- NOTE | 2025-04-27 06:55 | WPDHPUPDATE1 ---
History and Physical Update Update Date/Time: 04/27/25 06:55 History and Physical has been reviewed, including an updated exam of the patient. There are NO changes in the patient's condition. Risks, benefits, and alternatives have been discussed and questions answered. Patient agrees to proceed with procedure.
--- NOTE | 2025-04-27 08:09 | WPDANESEPPF ---
Anes - Initial Pre Proc Eval Procedure: Operation Date: 04/27/25 09:15 Proposed Procedures p Trans Urethral Resection Bladder Tumor with Gemcitabine Instillation - Sudheer Moy MD Date/Time: 04/27/25 08:09 Surgeon: Sudheer Moy MD Pre Op Diagnosis: Bladder Ca Patient Data Age: 74 Gender: F Height: 1.68 m Weight: 101.2 kg Last Vital Signs Temp 36.2 C L 04/27/25 06:50 Pulse 81 04/27/25 06:50 Resp 16 04/27/25 06:50 BP 124/68 04/27/25 06:50 Pulse Ox 100 04/27/25 06:50 O2 Del Method Room Air 04/27/25 06:50 Allergies Allergy/AdvReac Type Severity Reaction Status Date / Time lisinopril AdvReac Cough Verified 04/27/25 07:32 sun screen Allergy Rash, skin Uncoded 04/20/25 09:22 irritation Home Medications ?Medication ?Instructions ?Recorded ?Confirmed ?Type lovastatin 20 mg tablet 20 mg PO HS 10/13/20 04/20/25 History omeprazole 20 mg capsule,delayed 20 mg PO DAILY 10/13/20 04/20/25 History release hydralazine 25 mg tablet 25 mg PO TID #60 tabs 10/16/20 04/27/25 Rx allopurinol 300 mg tablet 150 mg PO DAILY KIDNEY STONES 09/16/22 04/20/25 History cholecalciferol (vitamin D3) 25 25 mcg PO DAILY 09/16/22 04/27/25 History mcg (1,000 unit) capsule metoprolol succinate 50 mg 50 mg PO BID 09/16/22 04/27/25 History tablet,extended release 24 hr dapagliflozin propanediol 10 mg 10 mg PO DAILY 04/01/23 04/20/25 History tablet (Farxiga) glipizide 5 mg tablet 10 mg PO BID 04/01/23 04/20/25 History magnesium oxide 400 mg (241.3 mg 500 mg PO BID 04/01/23 04/20/25 History magnesium) tablet insulin degludec 100 48 unit subcut QAM 12/15/23 04/20/25 History unit-liraglutide 3.6 mg/mL(3 mL) subcutaneous pen (Xultophy 100/3.6) oxybutynin chloride 5 mg tablet 5 mg PO DAILY PRN bladder spasms 03/29/24 04/20/25 History Laboratory Tests 04/27/25 07:22 POC Capillary Glucose 114 H mg/dl (65-105) Patient hx anesthesia problems: none Family hx anesthesia problems: none Results Review: All pre-operative results and documents have been reviewed as part of the pre-operative evaluation. PMFSH Past Medical History Medical History Sec DM hpros nt st [facility]nr Insomnia Gout GERD (gastroesophageal reflux disease) Nephrolithiasis Hyperlipidemia HTN (hypertension) Diabetes Family History Family History Father Alzheimer disease Prostate carcinoma Diabetes mellitus Mother Diabetes mellitus Advanced dementia Sibling Multiple sclerosis Diabetes mellitus Mental and behavioral problem in adult Social History Social History Smoking status: Never smoker Alcohol intake: current Substance use: never Substance use type: does not use Lack of Transportation: No Lack of Food: Never True Current Housing: I Have Housing Concerned About Future Housing: No Difficulty Paying Gas/Electric Bills: No Difficulty Paying for Meds: No Currently Unemployed: No Education: High School Diploma/GED Difficulty w/ Childcare or Family Care: No Living arrangements: alone Gender identity (if verbalized by the patient): Female Spiritual care concerns: No Anes - Eval Final PreProcedure Day of Procedure 04/27/25 08:09 Patient weight: obese Heart: regular rate and rhythm Lungs: clear to auscultation Airway: Mallampati scale class II Neurological: alert and oriented Last oral intake: >/= 8 hours ASA classification: III Emergent: no Anesthetic plan: proceed Anesthesia type and monitoring: general LMA and standard monitoring Results Review: All pre-operative results and documents have been reviewed as part of the pre-operative evaluation. Informed Consent: The patient's anesthetic plan and its attendant risks and benefits were discussed with the patient/family/POA. Questions were solicited and answers provided to the satisfaction of the patient/family/POA.
[2025-04-27] MEDS: LACTATED RINGERS 1,000 ML 30 ML IV CONT (08:30)
[2025-04-27] MEDS: ceFAZolin 2 GM in SODIUM CHLORIDE 0.9% IV 50 ML 100 ML IVPB (09:08)
[2025-04-27] MEDS: LIDOCAINE 2% GEL UROJET 10 ML PKG MUCOUS MEM (09:27)
--- NOTE | 2025-04-27 09:31 | S_PTH ---
PATIENT: Regina Keller LOC: [facility] U#:[id number] AGE/SX: 74/F ROOM: RE04/27/[address]: Sudheer Moy MD : 1950 BED: DIS: 04/27/2025 SPEC #: [id number] RECD: 04/27/25 10:59 STATUS: HELENA REQ #: [id number] YURY: 04/27/25 09:[address]: Sudheer Moy DEPT: [facility] Surgical RECD BY: Misti Jorge ENTERED: 04/27/25 10:59 SP TYPE: Surgical OTHR DR: Deanne Morrow, MD Susi Oquendo MD Tissues: A - Bladder Tumor Procedures: Hematoxylin and Eosin Stain Gross and Microscopic Level 4
[2025-04-27] MEDS: SODIUM CHLORIDE 0.9% IV 23.7 ML, GEMCITABINE HCL 1,000 MG BLADDER ×2 (10:00→10:01)
--- NOTE | 2025-04-27 10:20 | W.PM.PROC2 ---
Procedure Note - Detailed Date of Procedure 04/27/25 Pre-op Diagnosis Bladder Ca Post-op Diagnosis Same Procedure Performed TURBT (small) Surgeon Sudheer Moy MD Anesthesia MAC Description of Procedure Patient brought the operative suite she was prepped draped in routine sterile fashion in dorsal lithotomy position. 2% xylocaine jelly was introduced intraurethrally and systemic sedation was administered per the anesthesia department. It should be noted she was found to be in atrial fibrillation with the onset of cardiac monitoring. We proceeded with the procedure uneventfully. Twenty-four F resectoscope was placed in her bladder. They were very small bladder tumor above the left [place] trigone was resected with attempt made to include detrusor muscle for pathological evaluation of invasion. Base and periphery was cauterized. This was all done with care to avoid injury to the ureteral orifice. Remainder of the bladder was endoscopically normal. The scope was removed and a 18 F Yin catheter was placed to drainage Drains Yes Pathology Yes Complications No immediate complications Condition Stable
--- NOTE | 2025-04-27 10:23 | W.PM.PROC2 ---
Procedure Note - Detailed Date of Procedure 04/27/25 Pre-op Diagnosis Bladder Ca Post-op Diagnosis Same Procedure Performed Gemcitabine installation Surgeon Sudheer Moy MD Anesthesia None Description of Procedure With the patient in the supine position, a 16F Yin catheter is placed using sterile technique. Using a protective facemask, gown and double layer of gloves Gemcitabine 2gm in 100cc saline is administered through the catheter/into the bladder. The catheter is then plugged. Patient was instructed to lie supine x20min, then to roll both the left and right x20 min. each. Total dwell time will be 60 min., after which the bladder will be drained and catheter removed.
--- NOTE | 2025-04-27 10:52 | ECG_ITS ---
Test Date: 2025-04-27 09:54:29 Measurements Intervals [place] Rate: 89 P: 0 IN: 0 QRS: 16 QRSD: 102 T: 7 QT: 370 QTc: 453 Interpretive Statements ATRIAL FIBRILLATION CONSIDER INFERIOR INFARCT, AGE INDETERMINATE ABNORMAL ECG Compared to ECG 04/24/2025 14:32:45 Sinus rhythm no longer present Electronically Signed On 04-27-2025 13:16:07 DEVELOPMENTAL SERVICES WORKER by Janes Hannah D.O.
--- NOTE | 2025-04-27 12:29 | PM.CNCAR ---
Assessment and Plan Assessment and plan (1) New onset a-fib: Code(s): I48.91 - Unspecified atrial fibrillation Status: Acute Plan 74 y/o female with -New onset A fib with RVR- HR is now in the 90s-100s -HTN -HLD Plan: Check and replace electrolytes to keep K>4 and Mg>2 [id number] score 2 (female= 1 point, HTN= 1 point). Start eliquis 5mg po bid for anticoagulation. Per surgery, ok to start after 48 hours HR is in the 90s to 100s. Continue metoprolol 50 mg po daily. BP is soft and hence will not increase dose further Continue statin, glipizide Follow up with cardiology in 1 month. Patient wants to see [facility] heart cardiology at [place]. Informed her to call and schedule an appointment within 1 month Recommend EKG, TTE, stress test, event monitor as outpatient Recommendations discussed with primary team History of Present Illness History of Present Illness Consult date/time: 04/27/25 12:29 Reason For Visit: Bladder Ca Narrative: 74 year old female with h/o HTN, DM, HLD, GERD, bladder cancer diagnosed in 2023 underwent outpatient Gemcitabine installation in the bladder with Dr. Sudheer Moy today. She was noted to be in A fib which is a new diagnosis for her. Rates are 90s to 120s. EKG shows A fib. Cardiology is consulted for further recommendations. Patient states she never had A fib before. No other cardiac medical history. No chest pain, dizziness, LH, pre syncope, syncope, orthopnea, PND, leg swelling, recent weight gain. She reports some palpitations three days ago which subsided on its own. Review of Systems Review of Systems: A complete review of systems was performed and pertinent positives are reported in the HPI. [facility] Past Medical History Medical History Sec DM hpros nt st uncnr Insomnia Gout GERD (gastroesophageal reflux disease) Nephrolithiasis Hyperlipidemia HTN (hypertension) Diabetes Family History Family History Father Alzheimer disease Prostate carcinoma Diabetes mellitus Mother Diabetes mellitus Advanced dementia Sibling Multiple sclerosis Diabetes mellitus Mental and behavioral problem in adult Social History Social History Smoking status: Never smoker Alcohol intake: current Substance use: never Substance use type: does not use Lack of Transportation: No Lack of Food: Never True Current Housing: I Have Housing Concerned About Future Housing: No Difficulty Paying Gas/Electric Bills: No Difficulty Paying for Meds: No Currently Unemployed: No Education: High School Diploma/GED Difficulty w/ Childcare or Family Care: No Living arrangements: alone Gender identity (if verbalized by the patient): Female Spiritual care concerns: No Meds Home Medications and Allergies Home Medications ?Medication ?Instructions ?Recorded ?Confirmed ?Type lovastatin 20 mg tablet 20 mg PO HS 10/13/20 04/20/25 History omeprazole 20 mg capsule,delayed 20 mg PO DAILY 10/13/20 04/20/25 History release hydralazine 25 mg tablet 25 mg PO TID #60 tabs 10/16/20 04/27/25 Rx allopurinol 300 mg tablet 150 mg PO DAILY KIDNEY STONES 09/16/22 04/20/25 History cholecalciferol (vitamin D3) 25 25 mcg PO DAILY 09/16/22 04/27/25 History mcg (1,000 unit) capsule metoprolol succinate 50 mg 50 mg PO BID 09/16/22 04/27/25 History tablet,extended release 24 hr dapagliflozin propanediol 10 mg 10 mg PO DAILY 04/01/23 04/20/25 History tablet (Farxiga) glipizide 5 mg tablet 10 mg PO BID 04/01/23 04/20/25 History magnesium oxide 400 mg (241.3 mg 500 mg PO BID 04/01/23 04/20/25 History magnesium) tablet insulin degludec 100 48 unit subcut QAM 12/15/23 04/20/25 History unit-liraglutide 3.6 mg/mL(3 mL) subcutaneous pen (Xultophy 100/3.6) oxybutynin chloride 5 mg tablet 5 mg PO DAILY PRN bladder spasms 03/29/24 04/20/25 History Allergies Allergy/AdvReac Type Severity Reaction Status Date / Time lisinopril AdvReac Cough Verified 04/27/25 07:32 sun screen Allergy Rash, skin Uncoded 04/20/25 09:22 irritation Vital Signs Vital Signs - 24 hr 04/27/25 06:50 04/27/25 09:39 04/27/25 09:45 Temperature 36.2 C L 37.0 C Pulse Rate 81 98 97 Respiratory Rate 16 15 16 Blood Pressure 124/68 115/87 118/88 Pulse Oximetry 100 100 100 Oxygen Delivery Room Air Simple Face Mask Simple Face Mask Oxygen Flow Rate 8 8 04/27/25 10:00 04/27/25 10:15 04/27/25 10:30 Temperature Pulse Rate 100 92 100 Respiratory Rate 15 16 15 Blood Pressure 123/88 135/80 136/86 Pulse Oximetry 97 99 99 Oxygen Delivery Room Air Room Air Room Air Oxygen Flow Rate 04/27/25 10:45 04/27/25 11:00 04/27/25 11:15 Temperature Pulse Rate 107 H 104 H 100 Respiratory Rate 15 Blood Pressure 120/70 121/69 114/65 Pulse Oximetry 97 98 96 Oxygen Delivery Room Air Room Air Oxygen Flow Rate 04/27/25 11:30 04/27/25 11:30 04/27/25 11:45 Temperature Pulse Rate 109 H 101 H 104 H Respiratory Rate 17 16 Blood Pressure 137/92 H 150/96 H 147/88 H Pulse Oximetry 97 95 90 Oxygen Delivery Room Air Room Air Oxygen Flow Rate 04/27/25 12:15 Temperature Pulse Rate 105 H Respiratory Rate 18 Blood Pressure 114/69 Pulse Oximetry 99 Oxygen Delivery Room Air Oxygen Flow Rate Exam Narrative: General: Alert oriented x3, no acute distress Neck: Supple, no JVD Chest: Bilaterally clear to auscultation, no rales or rhonchi Cardiac: S1, S2 +, irregularly irregular rhythm, no murmurs or rubs Extremities: No pedal edema, no skin rash Neurologic: Alert and oriented x3, no focal neurological deficits Results Labs and Meds Lab results: Intake and Output 04/26/25 04/27/25 04/27/25 23:59 07:59 15:59 Intake Total 200 Balance 200 Intake: IV 200 Lactated Ringers 1,000 ml @ 30 200 mls/hr IV CONT .Q24H [facility] Rx#: [id number] Patient Weight 04/27/25 23:59 Weight 101.2 kg
--- NOTE | 2025-04-27 13:36 | SUR.PHASEI ---
cardiology at bedside. cardiology MD stated pt ok to d/c home. urologist and rn case mgr discussed starting blood thinner two days after discharge
--- NOTE | 2025-04-27 14:28 | SUR.PHASEII ---
1428: Waiting on DC orders from md, Patient is otherwise ready for dc.
== END 2025-04-27 14:50 | disposition home or self-care (01) ==
PROVIDERS: PCP Family Medicine; Visit Provider Urology
PROC: 0TBB8ZZ Excision of Bladder, Via Natural or Artificial Opening Endoscopic (ICD-10-PCS; CPT 52234; principal; 2025-04-27 09:15)
DX: C67.0 Malignant neoplasm of trigone of bladder (principal); I48.91 Unspecified atrial fibrillation; E78.5 Hyperlipidemia, unspecified; I10 Essential (primary) hypertension; E11.9 Type 2 diabetes mellitus without complications; K21.9 Gastro-esophageal reflux disease without esophagitis; G47.00 Insomnia, unspecified; M10.9 Gout, unspecified; R94.31 Abnormal electrocardiogram [ECG] [EKG]; E66.9 Obesity, unspecified; Z68.36 Body mass index [BMI] 36.0-36.9, adult; Z79.84 Long term (current) use of oral hypoglycemic drugs; Z79.4 Long term (current) use of insulin; Z80.42 Family history of malignant neoplasm of prostate
CPT/HCPCS: 52234; 51720; 82948; 88305; 93005; J0690; J2704; J3010; J7120; J9201